=== PATIENT | male | born 1965 | race Caucasian/White ===

== ENCOUNTER 2017-01-04 11:16 | Emergency (ER) | payer OTHER ==
--- NOTE | 2017-01-04 11:26 | ER Document Report ---
ED Medical Screen (RME) - General Stated Complaint: RIGHT RIB INJURY Mode of Arrival: Ambulatory Information source: Patient Notes: Patient presents with right-sided rib pain. Reports he fell off ladder and landed on the ribs 2 days ago. No shortness of breath. I have greeted and performed a rapid initial assessment of this patient. A comprehensive ED assessment and evaluation of the patient, analysis of test results and completion of the medical decision making process will be conducted by additional ED providers. TRAVEL OUTSIDE OF THE [place] IN LAST 30 DAYS: No - Related Data Allergies/Adverse Reactions: levofloxacin [From Levaquin] Allergy (Verified 05/20/16 15:35) Past Medical History - Past Medical History Cardiac Medical History: Reports: Hx Hypertension Pulmonary Medical History: Reports: Hx Bronchitis, Hx Pneumonia Denies: Hx Tuberculosis GI Medical History: Reports: Hx Hepatitis - Hepatitis C Psychiatric Medical History: Denies: Hx Depression Infectious Medical History: Reports: Hx Hepatitis - Hepatitis C Past Surgical History: Reports: Hx Orthopedic Surgery - right 5th finger and left thumb - Immunizations Immunizations up to date: Yes Hx Diphtheria, Pertussis, Tetanus Vaccination: Yes Physical Exam - Vital signs Vitals: Temp Pulse Resp BP Pulse Ox 98.0 F 92 16 135/92 H 95 01/04/17 11:01/04/17 11:23 01/04/17 11:01/04/17 11:01/04/17 11:23 Course - Vital Signs Vital signs: Temp Pulse Resp BP Pulse Ox 98.0 F 92 16 135/92 H 95 01/04/17 11:23 01/04/17 11:23 01/04/17 11:23 01/04/17 11:23 01/04/17 11:23
[2017-01-04] MEDS ORDERED: OXYCODONE-ACETAMINOPHEN 5-325 MG TABLET PO ONE (11:50)
[2017-01-04] MEDS ORDERED: PROMETHAZINE HCL 25 MG TABLET PO ONE (11:51)
--- NOTE | 2017-01-04 12:06 | ER Document Report ---
ED General - General Chief Complaint: Rib Pain Stated Complaint: RIGHT RIB INJURY Mode of Arrival: Ambulatory Notes: Patient fell from a ladder with his right anterior chest/ribs hitting a metal post . He says that it's very painful for him to touch, take a deep breath, and especially cough. Does not feel short of breath, just pain with breathing. No vomiting and no diarrhea. No fevers. Denies any other injuries. No abdominal pain. TRAVEL OUTSIDE OF THE [place] IN LAST 30 DAYS: No - Related Data Allergies/Adverse Reactions: levofloxacin [From Levaquin] Allergy (Verified 01/04/17 11:26) Past Medical History - General Information source: Patient - Social History Smoking Status: Current Every Day Smoker Cigarette use (# per day): Yes Chew tobacco use (# tins/day): Yes - 1/2ppd Frequency of alcohol use: Rare Drug Abuse: None Family History: Reviewed & Not Pertinent Patient has suicidal ideation: No Patient has homicidal ideation: No - Past Medical History Cardiac Medical History: Reports: Hx Hypertension Pulmonary Medical History: Reports: Hx Bronchitis, Hx Pneumonia Denies: Hx Tuberculosis GI Medical History: Reports: Hx Hepatitis - Hepatitis C Infectious Medical History: Reports: Hx Hepatitis - Hepatitis C Past Surgical History: Reports: Hx Orthopedic Surgery - right 5th finger and left thumb - Immunizations Immunizations up to date: Yes Hx Diphtheria, Pertussis, Tetanus Vaccination: Yes Review of Systems - Review of Systems Notes: REVIEW OF SYSTEMS: CONSTITUTIONAL : Denies fever. EENT: Denies eye, ear, nose or mouth or throat pain or other symptoms. CARDIOVASCULAR: Pain of the anterior right chest wall, primarily right beneath the right breast. RESPIRATORY: Has some chronic cough, but no significant chest congestion, or shortness of breath. GASTROINTESTINAL: Denies abdominal pain or nausea, vomiting, or diarrhea. GENITOURINARY: Denies difficulty or painful urinating, urinary frequency, blood in urine. MUSCULOSKELETAL: Denies back or neck pain. Denies joint pain or swelling. SKIN: Denies rash or skin lesions. NEUROLOGICAL: Denies LOC or altered mental status. Denies headache. Denies sensory loss or motor deficits. ALL OTHER SYSTEMS REVIEWED AND NEGATIVE. Physical Exam - Vital signs Vitals: Temp Pulse Resp BP Pulse Ox 98.0 F 92 16 135/92 H 95 01/04/17 11:23 01/04/17 11:23 01/04/17 11:23 01/04/17 11:23 01/04/17 11:23 Interpretation: Normal - Notes Notes: PHYSICAL EXAMINATION: GENERAL: Well-appearing, in no acute distress. HEAD: Atraumatic, normocephalic. NECK: Normal range of motion, supple. LUNGS: Breath sounds clear and equal bilaterally. Very tender to press the right ribs, especially just below the right nipple. HEART: Regular rate and rhythm without murmurs. ABDOMEN: Soft, nontender. No guarding or rebound. BACK: No tenderness throughout entire back. EXTREMITIES: Normal range of motion without pain. NEUROLOGICAL: Normal speech, normal gait. Normal sensory, motor, and reflex exams. Awake, alert, and oriented x3. SKIN: Warm, dry, no rashes. No contusions, ecchymosis, abrasions,. Course - Vital Signs Vital signs: Temp Pulse Resp BP Pulse Ox 98.0 F 92 16 135/92 H 95 01/04/17 11:23 01/04/17 11:23 01/04/17 11:23 01/04/17 11:23 01/04/17 11:23 - Diagnostic Test Radiology results interpreted by me: 01/04/17 12:08 X-ray of the right ribs is negative. X-ray of the chest shows no pneumothorax. Discharge - Discharge Clinical Impression: Contusion of ribs Qualifiers: Encounter type: initial encounter Laterality: right Qualified Code(s): S20.211A - Contusion of right front wall of thorax, initial encounter Condition: Stable Disposition: HOME, SELF-CARE Additional Instructions: Rib Contusion You have been diagnosed as having bruised ribs. It will usually take a few weeks for these injured ribs to heal. You should cough or take a deep breath at least every hour or two to prevent lung complications. You should not engage in any strenuous physical activity until released by your physician. The usual rule is "if it hurts, don' t do it." Return if you develop any of the following: (1) Fever or chills. (2) Persistent cough, coughing up blood, or shortness of breath. (3) Increasing pain. (4) Weakness, lightheadedness, or fainting. Stop Smoking You should stop smoking. The tar and chemicals in cigarette smoke are harmful. Smoking has been shown to cause: Emphysema and chronic bronchitis Lung cancer Cancer of the mouth, larynx, stomach, and pancreas Heart disease and stroke Stillbirths and miscarriage Premature aging In addition, smoking increases the chances of respiratory infections and ear infections in children of smokers, and increases the risk of cancer in persons exposed to second-hand smoke. Classes are available to help you stop smoking. If you are serious about wanting to quit, we can help arrange this therapy for you, or you can contact the local lung or cancer association. Oral Narcotic Medication You have been given a prescription for pain control. This medication is a narcotic. It's best taken with food, as nausea can result if taken on an empty stomach. Don't operate machinery or drive within six hours of taking this medication. Do not combine this medicine with alcohol, or with any medication which can cause sedation (such as cold tablets or sleeping pills) unless you get permission from the physician. Narcotics tend to cause constipation. If possible, drink plenty of fluids and eat a diet high in fiber and fruits. FOLLOW-UP CARE: If you have been referred to a physician for follow-up care, call the physician s office for an appointment as you were instructed or within the next two days. If you experience worsening or a significant change in your symptoms, notify the physician immediately or return to the Emergency Department at any time for re-evaluation. Prescriptions: Oxycodone HCl/Acetaminophen [Percocet 5-325 mg Tablet] 1 - 2 tab PO Q4H PRN #15 tablet PRN Reason: Forms: Smoking Cessation Education
[2017-01-04 12:31] VITALS: BP 158/102
== END 2017-01-04 12:27 | disposition home or self-care (01) ==
LOC: ER 11:16
DX: S20.211A Contusion of right front wall of thorax, initial encounter (principal); R07.81 Pleurodynia; F17.210 Nicotine dependence, cigarettes, uncomplicated; R05 Cough; X58.XXXA Exposure to other specified factors, initial encounter
CPT/HCPCS: 99283

== ENCOUNTER 2017-04-09 13:15 | Emergency (ER) | payer OTHER ==
[2017-04-09] MEDS ORDERED: OXYCODONE HCL IR 5 MG TABLET PO ONE (13:47)
--- NOTE | 2017-04-09 13:58 | ER Document Report ---
ED General - General Chief Complaint: Rib Pain Stated Complaint: RIB PAIN Time Seen by Provider: 04/09/17 13:37 Mode of Arrival: Ambulatory Information source: Patient Notes: 52-year-old presents to ED for rib pain on the left side is the worst but it is on both sides. States he was violently vomiting all day yesterday felt a pop on the left chest had pain ever since then. Has history of high blood pressure but his blood pressure is 167/96 on the right with. machine and 160/110 on the left with a manual blood pressure. TRAVEL OUTSIDE OF THE [place] IN LAST 30 DAYS: No - HPI Onset: Yesterday Onset/Duration: Persistent Quality of pain: Sharp Severity: Severe Pain Level: 5 Associated symptoms: Other - Breathing or cough hurts to move increased pain with palpation Exacerbated by: Movement, Coughing, Deep breathing, Other - Palpation Relieved by: Denies Similar symptoms previously: Yes Recently seen / treated by doctor: No - Related Data Allergies/Adverse Reactions: levofloxacin [From Levaquin] Allergy (Verified 01/04/17 11:26) Past Medical History - General Information source: Patient - Social History Smoking Status: Current Every Day Smoker Cigarette use (# per day): Yes - Pack per day Chew tobacco use (# tins/day): No Smoking Education Provided: Yes - less than 2 minute Frequency of alcohol use: Heavy - Dating Drug Abuse: None Occupation: Obstruction Lives with: Parents - Mother Family History: Arthritis, COPD, Hypertension, Other - CHF Patient has suicidal ideation: No Patient has homicidal ideation: No - Past Medical History Cardiac Medical History: Reports: Hx Hypercholesterolemia Pulmonary Medical History: Reports: Hx Bronchitis, Hx Pneumonia EENT Medical History: Reports: None Neurological Medical History: Reports: None Endocrine Medical History: Reports: None Renal/ Medical History: Reports: None Malignancy Medical History: Reports Hx Skin Cancer - Basal cell carcinoma GI Medical History: Reports: Hx Hepatitis - Hepatitis C Musculoskeltal Medical History: Reports Hx Musculoskeletal Trauma - Fifth finger and ribs Skin Medical History: Reports None Psychiatric Medical History: Reports: None Traumatic Medical History: Reports: None Infectious Medical History: Reports: Hx Hepatitis - Hepatitis C Past Surgical History: Reports: Hx Orthopedic Surgery - right 5th finger and left thumb - Immunizations Immunizations up to date: Yes Hx Diphtheria, Pertussis, Tetanus Vaccination: Yes Review of Systems - Review of Systems Constitutional: No symptoms reported EENT: No symptoms reported Cardiovascular: Chest pain - Chest wall pain to the left and right states she has history of right rib pain in the ribs on the left side feel the same after vomiting yesterday and feeling a sharp pop Respiratory: No symptoms reported Gastrointestinal: No symptoms reported Genitourinary: No symptoms reported Male Genitourinary: No symptoms reported Musculoskeletal: No symptoms reported Skin: No symptoms reported Hematologic/Lymphatic: No symptoms reported Neurological/Psychological: No symptoms reported -: Yes All other systems reviewed and negative Physical Exam - Vital signs Vitals: Temp Pulse Resp BP Pulse Ox 98.1 F 84 18 158/102 H 96 04/09/17 13:31 04/09/17 13:31 04/09/17 13:31 04/09/17 13:31 04/09/17 13:31 Interpretation: Normal - General General appearance: Appears well, Alert - HEENT Head: Normocephalic, Atraumatic Eyes: Normal Pupils: PERRL - Respiratory Respiratory status: No respiratory distress Chest status: Tender - Chest wall pain worse with palpation. Breath sounds: Normal Chest palpation: Normal - Cardiovascular Rhythm: Regular Heart sounds: Normal auscultation Murmur: No - Abdominal Inspection: Normal Distension: No distension Bowel sounds: Normal Tenderness: Nontender Organomegaly: No organomegaly - Back Back: Normal, Nontender - Extremities General upper extremity: Normal inspection, Nontender, Normal color, Normal ROM , Normal temperature General lower extremity: Normal inspection, Nontender, Normal color, Normal ROM , Normal temperature, Normal weight bearing. No: Olive's sign - Neurological Neuro grossly intact: Yes Cognition: Normal Orientation: AAOx4 Baudette Coma Scale Eye Opening: Spontaneous [place] Coma Scale Verbal: Oriented B[place] Coma Scale Motor: Obeys Commands Lila Coma Scale Total: 15 Speech: Normal Motor strength normal: LUE, RUE, LLE, RLE Sensory: Normal - Psychological Associated symptoms: Normal affect, Normal mood - Skin Skin Temperature: Warm Skin Moisture: Dry Skin Color: Normal Course - Re-evaluation Re-evalutation: 04/09/17 22:17 Discussed patient's x-rays and labs with patient and with Dr. Dillon. Patient will be discharged home with prescription for oxycodone. Patient will follow up with Debra to me in the clinic was elevated liver enzymes elevated lipase and fractured ribs. Discharge planning discussed with patient follow-up and was able to get their appointment please forward to April 29 instead of May 29. - Vital Signs Vital signs: Temp Pulse Resp BP Pulse Ox 98.5 F 76 18 153/102 H 96 04/09/17 15:32 04/09/17 15:32 04/09/17 15:32 04/09/17 15:32 04/09/17 15:32 - Laboratory Result Diagrams: 04/09/17 14:00 04/09/17 14:00 Laboratory results interpreted by me: 04/09/17 04/09/17 14:00 14:00 WBC 11.6 H Plt Count 142 L Monocytes % 13.2 H Absolute Monocytes 1.5 H Total Bilirubin 2.4 H Direct Bilirubin 0.7 H AST 312 H ALT 188 H Alkaline Phosphatase 212 H Total Protein 9.2 H Lipase 349.6 H - Diagnostic Test Radiology reviewed: Image reviewed, Reports reviewed Discharge - Discharge Clinical Impression: Fracture of rib of left side Qualifiers: Encounter type: initial encounter Rib fracture type: multiple ribs Fracture type: closed Qualified Code(s): S22.42XA - Multiple fractures of ribs, left side , initial encounter for closed fracture Condition: Good Disposition: HOME, SELF-CARE Additional Instructions: Rib Injuries and Fractures You have been diagnosed as having either bruised or broken ribs. These two injuries are treated in the same way. It will usually take four to six weeks for these injured ribs to heal. Sometimes, rib belts or anesthetic injections of the chest wall help reduce the pain. If you are using a rib belt, you should cough or take a deep breath at least every hour or two to prevent lung complications. You should not engage in any strenuous physical activity until released by your physician. The usual rule is "if it hurts, don't do it." Rib fractures can lead to serious lung complications including lung collapse, hemorrhage, and pneumonia. You should call the physician or return at once if any of the following occur: (1) Fever or chills. (2) Persistent cough, coughing up blood, or shortness of breath. (3) Increasing pain. (4) Weakness, lightheadedness, or fainting. Be sure to take deep breaths and cough at least once an hour to prevent pneumonia. Also have elevated liver enzymes and elevated lipase that needs to be followed up with your primary doctor. I spoke with the discharge plan to see if she can get to the [facility] and replaced by [facility] before May she will come in for BP before discharge. ICE PACKS: Apply ice packs frequently against the painful area. Many different schedules are recommended, such as "20 minutes on, 20 minutes off" or "one hour ice, two hours rest." If you need to work, you may need to go longer between ice treatments. You should plan to have the area ice packed AT LEAST one fourth of the time. The ice should be applied over the wrap, tape, or splint, or over a layer of cloth -- not directly against the skin. Some ice bags have a built-in cloth and can be put directly on the skin. ORAL NARCOTIC MEDICATION: You have been given a prescription for pain control. This medication is a narcotic. It's best taken with food, as nausea can result if taken on an empty stomach. Don't operate machinery or drive within six hours of taking this medication. Do not combine this medicine with alcohol, or with any medication which can cause sedation (such as cold tablets or sleeping pills) unless you get permission from the physician. Narcotics tend to cause constipation. If possible, drink plenty of fluids and eat a diet high in fiber and fruits. FOLLOW-UP CARE: If you have been referred to a physician for follow-up care, call the physician s office for an appointment as you were instructed or within the next two days. If you experience worsening or a significant change in your symptoms, notify the physician immediately or return to the Emergency Department at any time for re-evaluation. Prescriptions: Oxycodone HCl [Oxy-Ir 5 mg Tablet] 5 mg PO Q8HP PRN #14 tab PRN Reason: Forms: Elevated Blood Pressure, Smoking Cessation Education, Return to Work Referrals: [facility] [Provider Group] - Follow up as needed
[2017-04-09 14:14] LABS: ABSOLUTE BASOPHILS # (AUTO) 0.1 10^3/uL (0.0-0.2); ABSOLUTE LYMPHOCYTES (AUTO) 2.6 10^3/uL (0.5-4.7); ABSOLUTE MONOCYTES (AUTO) 1.5 10^3/uL (0.1-1.4); ABSOLUTE NEUT (AUTO) 7.4 10^3/uL (1.7-8.2); BASOPHILS % (AUTO) 0.5 % (0-2); EOSINOPHILS % (AUTO) 0.3 % (0-6); HEMATOCRIT 42.2 % (37.9-51.0); HEMOGLOBIN 14.7 g/dL (13.5-17.0); HGB HCT DIFFERENCE 1.9; MEAN CORPUSCULAR HGB CONC 34.7 g/dL (32.0-36.0); MEAN CORPUSCULAR VOLUME 95 fl (80-97); MONOCYTES % (AUTO) 13.2 % (3-13); RED BLOOD COUNT 4.45 10^6/uL (4.35-5.55); WHITE BLOOD COUNT 11.6 10^3/uL (4.0-10.5)
--- NOTE | 2017-04-09 14:23 | RADIOLOGY REPORT (SQ) ---
EXAM DESCRIPTION: RIBS BILATERAL W/PA CXR COMPLETED DATE/TIME: 04/09/2017 2:12 pm REASON FOR STUDY: rib pain after violently vomiting COMPARISON: 01/04/2017 and 02/01/2013. TECHNIQUE: Frontal view of the chest and additional views of the right and left ribs acquired. NUMBER OF VIEWS: Four view. LIMITATIONS: None. FINDINGS: FRONTAL CXR: No pneumothorax. No pleural effusion. No atelectasis or infiltrates. RIBS: Probable healing nondisplaced fractures of the anterior left 7th and 8th ribs. No other acute fractures visualized on either side. OTHER: No other significant finding. IMPRESSION: PROBABLE HEALING NONDISPLACED FRACTURES OF THE ANTERIOR LEFT 7TH AND 8TH RIBS. COMMENT: SITE OF TRAUMA/COMPLAINT MARKED/STAMP COMPLETED: YES. TECHNICAL DOCUMENTATION: JOB ID: [id number] [employer]- All Rights Reserved
[2017-04-09 14:29] LABS: ALANINE AMINOTRANSFERASE 188 U/L (21-72); ALBUMIN 4.4 g/dL (3.5-5.0); ALKALINE PHOSPHATASE 212 U/L (38-126); ANION GAP 13 (5-19); ASPARTATE AMINO TRANSFERASE 312 U/L (17-59); BILIRUBIN,DIRECT 0.7 mg/dL (0.0-0.4); BILIRUBIN,TOTAL 2.4 mg/dL (0.2-1.3); BLOOD UREA NITROGEN 8 mg/dL (7-20); CARBON DIOXIDE 26 mmol/L (22-30); CHLORIDE 98 mmol/L (98-107); CREATINE KINASE 167 U/L (55-170); CREATININE RESULT 0.52 mg/dL (0.52-1.25); GLUCOSE 90 mg/dL (75-110); LIPASE 349.6 U/L (23-300); POTASSIUM 3.8 mmol/L (3.6-5.0); SODIUM 137.3 mmol/L (137-145); TOTAL PROTEIN 9.2 g/dL (6.3-8.2)
[2017-04-09 14:39] LABS: CREATINE KINASE MB 1.33 ng/mL (<4.55)
[2017-04-09 14:42] LABS: TROPONIN I < 0.012 ng/mL
[2017-04-09 15:36] VITALS: BP 153/102
--- NOTE | 2017-04-10 09:58 | EKG REPORT ---
SEVERITY:- NORMAL ECG - SINUS RHYTHM : Confirmed by: Mk Nieves 10-Apr-2017 09:57:40
== END 2017-04-09 15:36 | disposition home or self-care (01) ==
LOC: ER 13:15
DX: S22.42XA Multiple fractures of ribs, left side, initial encounter for closed fracture (principal); X58.XXXA Exposure to other specified factors, initial encounter; R74.8 Abnormal levels of other serum enzymes; F17.210 Nicotine dependence, cigarettes, uncomplicated; Z71.6 Tobacco abuse counseling; Z87.01 Personal history of pneumonia (recurrent); Z85.828 Personal history of other malignant neoplasm of skin; Z88.1 Allergy status to other antibiotic agents
CPT/HCPCS: 36415; 71111; 80053; 82550; 82553; 83690; 84484; 85025; 93005; 93010; 99284

== ENCOUNTER 2017-08-28 10:07 | Emergency (ER) | payer OTHER ==
--- NOTE | 2017-08-28 10:30 | ER Document Report ---
HPI - HPI Patient complains to provider of: left shoulder pain Pain Level: 5 Context: Patient is a 52-year-old male presents emergency department complaining of acute on chronic left shoulder pain. Patient states he has been having left shoulder pain for a couple months and last night was lifting some logs and woke up this morning with severe left shoulder pain and difficulty moving his left shoulder. Denies any fall or trauma. Past medical history significant for hepatitis C Past Medical History - Social History Smoking Status: Current Every Day Smoker Family History: Arthritis, COPD, Hypertension, Other - CHF - Past Medical History Cardiac Medical History: Reports: Hx Hypercholesterolemia, Hx Hypertension Pulmonary Medical History: Reports: Hx Bronchitis, Hx Pneumonia Denies: Hx Tuberculosis Renal/ Medical History: Denies: Hx Peritoneal Dialysis Malignancy Medical History: Reports Hx Skin Cancer - Basal cell carcinoma GI Medical History: Reports: Hx Hepatitis - Hepatitis C Musculoskeltal Medical History: Reports Hx Musculoskeletal Trauma - Fifth finger and ribs Psychiatric Medical History: Denies: Hx Depression Infectious Medical History: Reports: Hx Hepatitis - Hepatitis C Past Surgical History: Reports: Hx Orthopedic Surgery - right 5th finger and left thumb - Immunizations Immunizations up to date: Yes Hx Diphtheria, Pertussis, Tetanus Vaccination: Yes Vertical Provider Document - CONSTITUTIONAL Agree With Documented VS: Yes Exam Limitations: No Limitations General Appearance: WD/WN, No Apparent Distress - INFECTION CONTROL TRAVEL OUTSIDE OF THE [place] IN LAST 30 DAYS: No - RESPIRATORY O2 Sat by Pulse Oximetry: 96 - CARDIOVASCULAR Pulses: Normal: Radial - Capillary refill less than 2 seconds - MUSCULOSKELETAL/EXTREMETIES Musculoskeletal/Extremeties: MAEW, FROM, Tender - Left AC joint, No Edema. negative: Eccymosis - NEURO Level of Consciousness: Awake, Alert, Appropriate Motor/Sensory: No Motor Deficit, No Sensory Deficit - DERM Integumentary: Warm, Dry, No Rash Course - Re-evaluation Re-evalutation: 08/28/17 11:38 Patient is a 52-year-old male is hemodynamically stable, no acute distress afebrile. No evidence of a septic joint, gout flare, dislocation, or fracture on exam and imaging. Vitals wnl. At this time, I do not see an indication for labs or further imaging. Will discharge with conservative measures, return precautions, and follow-up recommendations. - Vital Signs Vital signs: Temp Pulse Resp BP Pulse Ox 98.6 F 95 18 129/94 H 96 08/28/17 10:11 08/28/17 10:11 08/28/17 10:11 08/28/17 10:25 08/28/17 10:11 - Diagnostic Test Radiology reviewed: Image reviewed, Reports reviewed Discharge - Discharge Clinical Impression: {Shoulder injury} Shoulder injury Qualifiers: Encounter type: initial encounter Laterality: left Qualified Code(s): S49.92XA - Unspecified injury of left shoulder and upper arm, initial encounter Condition: Good Disposition: HOME, SELF-CARE Instructions: Exercise Program for the Shoulder (OM), Shoulder Injury (OM), Sling to be Used ([facility]) Prescriptions: Naproxen 500 mg PO BID #20 tablet Referrals: [facility] [NO LOCAL MD] - Follow up in 1 month
--- NOTE | 2017-08-28 11:12 | RADIOLOGY REPORT (SQ) ---
EXAM DESCRIPTION: SHOULDER LEFT 2 OR MORE VIEWS COMPLETED DATE/TIME: 08/28/2017 11:01 am REASON FOR STUDY: pain COMPARISON: None. NUMBER OF VIEWS: Three views. TECHNIQUE: Internal rotation, external rotation, and Y view images acquired of the left shoulder. LIMITATIONS: None. FINDINGS: MINERALIZATION: Normal. BONES: No acute fracture or dislocation. No worrisome bone lesions. JOINTS: No dislocation. VISUALIZED LUNGS AND RIBS: No pneumothorax. No rib fracture. SOFT TISSUES: No radiopaque foreign body. OTHER: No other significant finding. IMPRESSION: NEGATIVE STUDY OF THE LEFT SHOULDER. NO RADIOGRAPHIC EVIDENCE OF ACUTE INJURY. TECHNICAL DOCUMENTATION: JOB ID: [id number] [employer]- All Rights Reserved
[2017-08-28] MEDS ORDERED: OXYCODONE HCL IR 5 MG TABLET PO ONE (11:37)
[2017-08-28] MEDS ORDERED: LIDOCAINE 5% (700 MG) TRANSDERMAL ADH..PATCH TP ONE (12:21)
[2017-08-28 12:48] VITALS: BP 135/92
== END 2017-08-28 12:41 | disposition home or self-care (01) ==
LOC: ER 10:07
DX: S49.92XA Unspecified injury of left shoulder and upper arm, initial encounter (principal); X50.9XXA Other and unspecified overexertion or strenuous movements or postures, initial encounter; E78.00 Pure hypercholesterolemia, unspecified; I10 Essential (primary) hypertension; Z86.19 Personal history of other infectious and parasitic diseases
CPT/HCPCS: 99284

== ENCOUNTER 2018-05-19 01:43 | Emergency (ER) | payer OTHER ==
[2018-05-19] MEDS ORDERED: ACETAMINOPHEN 325 MG TABLET PO ONE (04:02)
[2018-05-19] MEDS ORDERED: LIDOCAINE 1% INJ-PF (10 MG/ML) 30 ML SDV INJ ONE (04:02)
[2018-05-19] MEDS ORDERED: DIPH/PERTUSS(ACELL)/TETANUS VAC/PF 0.5 ML SYR (>=10YO) IM ONE (04:03)
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
[2018-05-19] MEDS ORDERED: KETOROLAC TROMETHAMINE INJ/PF 30 MG/1 ML SDV IV ONE (06:35)
[2018-05-19 07:53] VITALS: BP 140/95
== END 2018-05-19 06:58 | disposition home or self-care (01) ==
LOC: ER 01:43
DX: S01.01XA Laceration without foreign body of scalp, initial encounter (principal); R51 Headache; Y00.XXXA Assault by blunt object, initial encounter; Y92.009 Unspecified place in unspecified non-institutional (private) residence as the place of occurrence of the external cause; I10 Essential (primary) hypertension; Z88.1 Allergy status to other antibiotic agents; Z85.828 Personal history of other malignant neoplasm of skin
CPT/HCPCS: 99284; 90471; 96374; 70450; 72125; 90715; 12001; J3490; J1885

== ENCOUNTER 2019-05-24 15:44 | Inpatient (IN) | payer OTHER ==
[2019-05-24] MEDS ORDERED: CLINDAMYCIN 600 MG/D5W RTU 600 MG/50 ML RTUPB IV ONE (18:29)
--- NOTE | 2019-05-24 18:32 | ER Document Report ---
ED Medical Screen (RME) - General Chief Complaint: Hand Swelling Stated Complaint: RIGHT HAND PAIN, SWELLING Time Seen by Provider: 05/24/19 18:06 Notes: Patient is a 54-year-old male presents to the emergency department with redness and swelling noted to his right upper extremity. Patient states similar episode of erythema noted to her left upper extremity a few months ago. States he was admitted for 4 days for IV antibiotics. Patient states the redness and swelling is "just as bad as last time." Patient's denying any injury but states he has been exposed to bedbugs and scabies recently. GENERAL: Alert, interacts well. No acute distress. EXTREMITIES: Moves all 4 extremities spontaneously. normal radial and dorsalis pedis pulses bilaterally. Erythema and swelling noted dorsal aspect of left hand up into the left forearm. Decreased range of motion of left wrist noted. I have greeted and performed a rapid initial assessment of this patient. A comprehensive ED assessment and evaluation of the patient, analysis of test resu lts and completion of the medical decision making process will be conducted by additional ED providers. I have specifically instructed the patient or family members with the patient to immediately return to any nursing staff should anything change in the patient's condition or with their chief complaint. This medical record was dictated with voice recognizing software. There may be grammatical, syntax errors that are unintended. TRAVEL OUTSIDE OF THE [place] IN LAST 30 DAYS: No - Related Data Allergies/Adverse Reactions: levofloxacin [From Levaquin] Allergy (Verified 05/24/19 15:47) Past Medical History - Past Medical History Cardiac Medical History: Reports: Hx Hypercholesterolemia, Hx Hypertension Pulmonary Medical History: Reports: Hx Bronchitis, Hx Pneumonia Denies: Hx Tuberculosis Renal/ Medical History: Denies: Hx Peritoneal Dialysis Malignancy Medical History: Reports Hx Skin Cancer - Basal cell carcinoma GI Medical History: Reports: Hx Hepatitis - Hepatitis C Musculoskeltal Medical History: Reports Hx Musculoskeletal Trauma - Fifth finger and ribs Psychiatric Medical History: Denies: Hx Depression Infectious Medical History: Reports: Hx Hepatitis - Hepatitis C Past Surgical History: Reports: Hx Orthopedic Surgery - right 5th finger and left thumb - Immunizations Immunizations up to date: Yes Hx Diphtheria, Pertussis, Tetanus Vaccination: Yes Physical Exam - Vital signs Vitals: Temp Pulse Resp BP Pulse Ox 97.7 F 94 16 131/82 H 95 05/24/19 17:01 05/24/19 17:01 05/24/19 17:01 05/24/19 17:01 05/24/19 17:01 Course - Vital Signs Vital signs: Temp Pulse Resp BP Pulse Ox 97.7 F 94 16 131/82 H 95 05/24/19 17:01 05/24/19 17:01 05/24/19 17:01 05/24/19 17:01 05/24/19 17:01
[2019-05-24] MEDS ORDERED: OXYCODONE-ACETAMINOPHEN 5-325 MG TABLET PO ONE (19:02)
[2019-05-24] MEDS ORDERED: NORMAL SALINE 1000 ML 1,000 ML IV ONE (19:10)
--- NOTE | 2019-05-24 19:12 | ER Document Report ---
ED Extremity Problem, Upper - General Chief Complaint: Hand Swelling Stated Complaint: RIGHT HAND PAIN, SWELLING Time Seen by Provider: 05/24/19 18:06 Mode of Arrival: Ambulatory Information source: Patient Notes: 54-year-old male presents to ED for complaint of redness swelling and pain to e right hand wrist and forearm. He states he had a similar episode in February and was admitted and placed on antibiotics. He states he has not had any cuts or anything to this hand it just started coming very painful. He states is just as bad as last time. He states he has not injured his arm. He states he has no history of gout. He states he has been exposed to bedbugs and scabies recently but he has not scratched any bug bites TRAVEL OUTSIDE OF THE [place] IN LAST 30 DAYS: No - HPI Patient complains to provider of: Pain, Swelling, Right, Forearm, Hand, Wrist Onset: Yesterday Recent injury: No Where: Home Quality of pain: Sharp, Throbbing Severity of pain: Severe Pain Level: 5 Associated symptoms: Other Exacerbated by: Movement Relieved by: Nothing Similar symptoms previously: Yes Recently seen / treated by doctor: No - Related Data Allergies/Adverse Reactions: levofloxacin [From Levaquin] Allergy (Verified 05/24/19 15:47) Past Medical History - General Information source: Patient - Social History Smoking Status: Current Every Day Smoker Cigarette use (# per day): Yes - Pack per day Chew tobacco use (# tins/day): No Smoking Education Provided: Yes - Woman Frequency of alcohol use: Heavy - 5-6 beers either every day or every other day Drug Abuse: None Occupation: Instruction Lives with: Alone Family History: Arthritis, COPD, Hypertension, Other - CHF - Past Medical History Cardiac Medical History: Reports: Hx Hypercholesterolemia, Hx Hypertension Pulmonary Medical History: Reports: Hx Bronchitis, Hx Pneumonia EENT Medical History: Reports: None Neurological Medical History: Reports: None Endocrine Medical History: Reports: None Renal/ Medical History: Reports: None Malignancy Medical History: Reports Hx Skin Cancer - Basal cell carcinoma GI Medical History: Reports: Hx Hepatitis - Hepatitis C Musculoskeletal Medical History: Reports Hx Musculoskeletal Trauma - Fifth finger and ribs Skin Medical History: Reports Hx Cellulitis Psychiatric Medical History: Reports: None Traumatic Medical History: Reports: None Infectious Medical History: Reports: Hx Hepatitis - Hepatitis C Past Surgical History: Reports: Hx Orthopedic Surgery - right 5th finger and left thumb - Immunizations Immunizations up to date: Yes Hx Diphtheria, Pertussis, Tetanus Vaccination: Yes Review of Systems - Review of Systems Constitutional: No symptoms reported EENT: No symptoms reported Cardiovascular: No symptoms reported Respiratory: No symptoms reported Gastrointestinal: No symptoms reported Genitourinary: No symptoms reported Male Genitourinary: No symptoms reported Musculoskeletal: No symptoms reported Skin: No symptoms reported Hematologic/Lymphatic: No symptoms reported Neurological/Psychological: No symptoms reported -: Yes All other systems reviewed and negative Physical Exam - Vital signs Vitals: Temp Pulse Resp BP Pulse Ox 97.7 F 94 16 131/82 H 95 05/24/19 17:01 05/24/19 17:01 05/24/19 17:01 05/24/19 17:01 05/24/19 17:01 Interpretation: Normal - General General appearance: Appears well, Alert - HEENT Head: Normocephalic, Atraumatic Eyes: Normal Pupils: PERRL - Respiratory Respiratory status: No respiratory distress Chest status: Nontender Breath sounds: Normal Chest palpation: Normal - Cardiovascular Rhythm: Regular Heart sounds: Normal auscultation Murmur: No - Abdominal Inspection: Normal Distension: No distension Bowel sounds: Normal Tenderness: Nontender Organomegaly: No organomegaly - Back Back: Normal, Nontender - Extremities General upper extremity: Normal temperature General lower extremity: Normal inspection, Nontender, Normal color, Normal ROM, Normal temperature, Normal weight bearing. No: Olive's sign Forearm: Tender, Other - Erythema swelling Wrist: Tender, Limited ROM - Pain swelling, Other Hand: Tender, No evidence of human bite, No evidence of FB, Swelling, Other - Erythema - Neurological Neuro grossly intact: Yes Cognition: Normal Orientation: AAOx4 Lila Coma Scale Eye Opening: Spontaneous Lila Coma Scale Verbal: Oriented Bosworth Coma Scale Motor: Obeys Commands Bosworth Coma Scale Total: 15 Speech: Normal Motor strength normal: LUE, RUE, LLE, RLE Sensory: Normal - Psychological Associated symptoms: Normal affect, Normal mood - Skin Skin Temperature: Warm Skin Moisture: Dry Skin Color: Normal Course - Re-evaluation Re-evalutation: 05/24/19 21:[address] Tori Norman concerning the cellulitis pain swelling to the right hand wrist and forearm. She recommended calling orthopedics. I consulted Dr. Bravo who stated if there was no obvious injuries no obvious tendon damage and no abscesses that this was a cellulitis and needed to go to the hospitalist. I consulted Dr. Leo the hospitalist and he stated he would come and see the patient and decided whether he wants to send him home or to the admitting. They did he would come to the emergency room and see the patient. 05/24/19 22:16 Orders were placed for observation admission at [address] Leo - Vital Signs Vital signs: Temp Pulse Resp BP Pulse Ox 98.2 F 102 H 20 146/94 H 94 05/24/19 21:42 05/24/19 21:42 05/24/19 21:42 05/24/19 21:42 05/24/19 21:42 - Laboratory Result Diagrams: 05/24/19 19:35 05/24/19 19:35 Laboratory results interpreted by me: 05/24/19 05/24/19 19:35 19:35 WBC 13.0 H RDW 14.1 H Absolute Neutrophils 8.5 H Absolute Monocytes 1.6 H ESR 84 H Sodium 135.6 L Potassium 3.3 L Chloride 96 L AST 78 H Alkaline Phosphatase 170 H C-Reactive Protein 52.0 H Total Protein 8.4 H - Diagnostic Test Radiology reviewed: Image reviewed, Reports reviewed - Consults Ahmet Time consulted: 21:18 Reason for consultation: 05/24/19 21:18 Cellulitis right hand wrist and forearm Consulted provider: will come to ER Discharge - Discharge Clinical Impression: cellulitis right hand wrist and forearm Disposition: ADMITTED OBSERVATION Admitting Provider: Ahmet (Hospitalist) Unit Admitted: Medical Floor
[2019-05-24] MEDS ORDERED: ONDANSETRON HCL INJ/PF 4 MG/2 ML SDV IV ONE ×2 (19:13→21:36)
[2019-05-24] MEDS ORDERED: MORPHINE SULFATE 10 MG/ML INJ IV ONE ×2 (19:13→21:36)
--- NOTE | 2019-05-24 19:30 | RADIOLOGY REPORT (SQ) ---
EXAM DESCRIPTION: FOREARM RIGHT COMPLETED DATE/TIME: 05/24/2019 7:12 pm REASON FOR STUDY: Erythema swelling COMPARISON: None. NUMBER OF VIEWS: Two views. TECHNIQUE: Two radiographic images acquired of the right forearm, including elbow and wrist in at le ast one projection. LIMITATIONS: None. FINDINGS: MINERALIZATION: Normal. BONES: No acute fracture. No worrisome bone lesions. SOFT TISSUES: Diffuse soft tissue swelling. No radiopaque foreign body. OTHER: No other significant finding. IMPRESSION: No fracture or radiopaque foreign body. TECHNICAL DOCUMENTATION: JOB ID: [id number] [place]-72 2010 [email or web address]- All Rights Reserved Reading location - IP/workstation name: [email or web address]
--- NOTE | 2019-05-24 19:33 | RADIOLOGY REPORT (SQ) ---
EXAM DESCRIPTION: HAND RIGHT 3 VIEWS COMPLETED DATE/TIME: 05/24/2019 7:12 pm REASON FOR STUDY: Erythema swelling COMPARISON: None. EXAM PARAMETERS: NUMBER OF VIEWS: Three views. TECHNIQUE: AP, lateral and oblique radiographic images acquired of the right hand. LIMITATIONS: None. FINDINGS: MINERALIZATION: Normal. BONES: No acute fracture or dislocation. 5th DIP flexion deformity, chronic appearing. JOINTS: No effusion. SOFT TISSUES: Diffuse soft tissue swelling. No radiopaque foreign body. OTHER: No other significant finding. IMPRESSION: No acute fracture or dislocation. 5th DIP flexion deformity, chronic appearing. TECHNICAL DOCUMENTATION: JOB ID: [id number] [place]-72 2010 [email or web address]- All Rights Reserved Reading location - IP/workstation name: [email or web address]
[2019-05-24 20:08] LABS: ABSOLUTE BASOPHILS # (AUTO) 0.1 10^3/uL (0.0-0.2); ABSOLUTE LYMPHOCYTES (AUTO) 2.8 10^3/uL (0.5-4.7); ABSOLUTE MONOCYTES (AUTO) 1.6 10^3/uL (0.1-1.4); ABSOLUTE NEUT (AUTO) 8.5 10^3/uL (1.7-8.2); BASOPHILS % (AUTO) 0.5 % (0-2); EOSINOPHILS % (AUTO) 0.3 % (0-6); HEMATOCRIT 40.7 % (37.9-51.0); HEMOGLOBIN 13.8 g/dL (13.5-17.0); LYMPHOCYTES % (AUTO) 21.4 % (13-45); MEAN CORPUSCULAR HEMOGLOBIN 31.4 pg (27.0-33.4); MEAN CORPUSCULAR VOLUME 92 fl (80-97); MONOCYTES % (AUTO) 12.4 % (3-13); PLATELET COUNT 194 10^3/uL (150-450); RED BLOOD COUNT 4.41 10^6/uL (4.35-5.55); RED CELL DISTRIBUTION WIDTH 14.1 % (11.5-14.0); SEGMENTED NEUTROPHILS % (AUTO) 65.4 % (42-78); TOTAL CELLS COUNTED % (AUTO) 100 %
[2019-05-24 20:29] LABS: ALANINE AMINOTRANSFERASE 41 U/L (21-72); ALBUMIN 3.9 g/dL (3.5-5.0); ALKALINE PHOSPHATASE 170 U/L (38-126); ANION GAP 12 (5-19); ASPARTATE AMINO TRANSFERASE 78 U/L (17-59); BILIRUBIN,DIRECT 0.3 mg/dL (0.0-0.4); BILIRUBIN,TOTAL 1.1 mg/dL (0.2-1.3); BLOOD UREA NITROGEN 7 mg/dL (7-20); CALCIUM 9.6 mg/dL (8.4-10.2); CARBON DIOXIDE 28 mmol/L (22-30); CHLORIDE 96 mmol/L (98-107); GLUCOSE 92 mg/dL (75-110); POTASSIUM 3.3 mmol/L (3.6-5.0); SODIUM 135.6 mmol/L (137-145); TOTAL PROTEIN 8.4 g/dL (6.3-8.2)
[2019-05-24 20:43] LABS: ERYTHROCYTE SEDIMENTATION RATE 84 mm/hr (0-20)
[2019-05-24] MEDS ORDERED: MAGNESIUM HYDROXIDE SUSP 30 ML UDCUP PO PRN (21:57)
[2019-05-24] MEDS ORDERED: ONDANSETRON HCL INJ/PF 4 MG/2 ML SDV IV PRN (21:57)
[2019-05-24] MEDS ORDERED: MAG HYDROX/AL HYDROX/SIMETH SUSP 30 ML UDCUP PO PRN (21:57)
[2019-05-24] MEDS ORDERED: LEVALBUTEROL HCL NEB 0.63 MG/3 ML AMPUL NEB PRN (22:03)
[2019-05-24] MEDS ORDERED: NICOTINE 21 MG/24 HR PATCH.TD24 TD PRN (22:03)
[2019-05-24] MEDS ORDERED: ACETAMINOPHEN 325 MG TABLET PO PRN (22:03)
[2019-05-24] MEDS ORDERED: MORPHINE SULFATE 10 MG/ML INJ IV PRN ×3 (22:03→22:25)
[2019-05-24] MEDS ORDERED: CHLORPROMAZINE HCL INJ 25 MG/1 ML AMPULE IV PRN (22:03)
[2019-05-24] MEDS ORDERED: METOPROLOL TARTRATE PF/INJ 5 MG/5 ML SDV IV PRN (22:03)
[2019-05-24] MEDS: MORPHINE SULFATE 10 MG/ML INJ IV PRN (23:40)
[2019-05-24] MEDS: HEPARIN SOD (PORCINE) 5,000 UNIT/ML 1 ML VIAL SUBCUT SCH (23:40)
[2019-05-24] MEDS: DIAZEPAM 5 MG TABLET PO SCH (23:41)
[2019-05-24] MEDS: CEPHALEXIN 500 MG CAPSULE PO SCH (23:41)
[2019-05-25] MEDS: MORPHINE SULFATE 10 MG/ML INJ IV PRN ×2 (02:32→06:08)
--- NOTE | 2019-05-25 04:21 | PDOC H&P ---
History of Present Illness Admission Date/PCP: 05/24/2019 21:26 No local PCP Patient complains of: Painful swelling of right hand and wrist History of Present Illness: JOSE MCNEAL is a 54 year old male who presents to the emergency room with a 3-day history of painful swelling in his right hand and wrist. He admits that over the last 3 days he has developed gradual swelling and increasing pain, with associated redness of the skin and warmth to touch in the right distal forearm, wrist and hand. The pain has become severe and he describes it as a constant sharp throbbing in his hand wrist and distal forearm radiating up his right forearm. The pain is made worse by any attempted use of the hand or wrist. He denies any recent injury to the area. He admits a prior similar episode involving his other hand a few months ago. He has not identified any additional aggravating or ameliorating factors for his painful swelling. Past Medical History Cardiac Medical History: Reports: Hyperlipidema, Hypertension Denies: Atrial Fibrillation, Congestive Heart Failure, Coronary Artery Disease, Myocardial Infarction Pulmonary Medical History: Reports: Bronchitis, Pneumonia Denies: Asthma, Chronic Obstructive Pulmonary Disease (COPD), Respiratory Failure, Tuberculosis EENT Medical History: Denies: Cataracts, Ears - Hearing aids Neurological Medical History: Denies: Hemorrhagic CVA, Ischemic CVA, Multiple Sclerosis, Seizures Endocrine Medical History: Denies: Diabetes Mellitus Type 1, Diabetes Mellitus Type 2, Hyperthyroidism, Hypothyroidism Renal/ Medical History: Denies: Chronic Kidney Disease, Nephrolithiasis Malignancy Medical History: Reports: Skin Cancer - Basal cell carcinoma GI Medical History: Reports: Hepatitis - Hepatitis C Denies: Cirrhosis, Crohn's Disease, Ulcerative Colitis Musculoskeltal Medical History: Reports: Arthritis Denies: Fibromyalgia, Gout Skin Medical History: Denies: Eczema, Psoriasis Psychiatric Medical History: Reports: Alcohol Dependency, Tobacco Dependency Denies: Substance Abuse Traumatic Medical History: Reports: None Hematology: Denies: Anemia, Bleeding Tendencies Infectious Medical History: Reports: Hepatitis C Past Surgical History Past Surgical History: Reports: Orthopedic Surgery - right 5th finger and left thumb Social History Information Source: Patient Lives with: Alone Smoking Status: Current Every Day Smoker Frequency of Alcohol Use: Heavy Hx Recreational Drug Use: No Drugs: None Hx Prescription Drug Abuse: No - Advance Directive Resuscitation Status: Full Code Surrogate healthcare decision maker:: Birgit Mcneal Family History Family History: Arthritis, COPD, Hypertension, Other - CHF Parental Family History Reviewed: Yes Children Family History Reviewed: No Sibling(s) Family History Reviewed.: Yes Medication/Allergy Home Medications: Chlorthalidone [Hygroton 25 mg Tablet] 25 mg PO DAILY #30 tablet 03/05/19 Clindamycin HCl 300 mg PO Q6H #24 capsule 03/05/19 Oxycodone HCl/Acetaminophen [Percocet 5-325 mg Tablet] 1 tab PO Q6HP PRN #12 tablet 03/05/19 Allergies/Adverse Reactions: levofloxacin [From Levaquin] Allergy (Verified 05/24/19 15:47) Review of Systems Constitutional: ABSENT: chills, fever(s) Eyes: ABSENT: visual disturbances, other - Ocular pain Ears: ABSENT: hearing changes, other - Ear pain Nose, Mouth, and Throat: ABSENT: mouth pain, sore throat Cardiovascular: ABSENT: chest pain, palpitations Respiratory: ABSENT: cough, dyspnea Gastrointestinal: ABSENT: abdominal pain, constipation, diarrhea, nausea, vomiting Genitourinary: ABSENT: dysuria, hematuria Musculoskeletal: ABSENT: joint swelling, muscle weakness Integumentary: PRESENT: as per HPI, other - Painful swelling with redness and increased warmth in the right distal forearm wrist and hand. Recent exposure to bedbugs, scabies and a variety of biting insects.. ABSENT: pruritus, rash Neurological: ABSENT: confusion, convulsions, focal weakness, memory loss, syncope Psychiatric: ABSENT: anxiety, depression Endocrine: ABSENT: cold intolerance, heat intolerance Hematologic/Lymphatic: ABSENT: easy bleeding, easy bruising Physical Exam Vital Signs: Temp Pulse Resp BP Pulse Ox 97.7 F 94 16 131/82 H 95 05/24/19 17:01 05/24/19 17:01 05/24/19 17:01 05/24/19 17:01 05/24/19 17:01 Intake & Output 05/22/19 05/23/19 05/24/19 23:59 23:59 23:59 Weight 87 kg General appearance: PRESENT: cooperative, mild distress - Due to pain in his right hand and wrist Head exam: PRESENT: atraumatic, normocephalic Eye exam: PRESENT: conjunctiva pink. ABSENT: conjunctival injection, scleral icterus Ear exam: PRESENT: normal external ear exam. ABSENT: bleeding, drainage Mouth exam: PRESENT: dry mucosa, neck supple Neck exam: ABSENT: JVD, thyromegaly, tracheal deviation Respiratory exam: PRESENT: clear to auscultation ankit, symmetrical, unlabored Cardiovascular exam: PRESENT: RRR. ABSENT: clicks, gallop, rubs Pulses: PRESENT: normal radial pulses, normal dorsalis pedis pul Vascular exam: PRESENT: normal capillary refill. ABSENT: pallor GI/Abdominal exam: PRESENT: normal bowel sounds, soft Rectal exam: PRESENT: deferred Extremities exam: PRESENT: other - Erythema and edema with local tenderness to palpation and increased warmth on exam of the right distal forearm wrist and hand.. ABSENT: joint swelling, pedal edema Musculoskeletal exam: PRESENT: ambulatory, tenderness - Erythema and edema with local tenderness to palpation and increased warmth on exam of the right distal forearm wrist and hand.. ABSENT: deformity, dislocation Neurological exam: PRESENT: alert, oriented to person, oriented to place, oriented to time, oriented to situation, CN II-XII grossly intact. ABSENT: motor sensory deficit Psychiatric exam: PRESENT: appropriate affect, normal mood Skin exam: PRESENT: dry, intact, warm, other - Erythema and edema with local tenderness to palpation and increased warmth on exam of the right distal forearm wrist and hand.. ABSENT: jaundice, rash, urticaria Results Laboratory Results: 05/24/19 19:35 05/24/19 19:35 05/24/19 05/24/19 19:35 19:35 WBC 13.0 H RBC 4.41 Hgb 13.8 Hct 40.7 MCV 92 MCH 31.4 MCHC 34.0 RDW 14.1 H Plt Count 194 Seg Neutrophils % 65.4 Lymphocytes % 21.4 Monocytes % 12.4 Eosinophils % 0.3 Basophils % 0.5 Absolute Neutrophils 8.5 H Absolute Lymphocytes 2.8 Absolute Monocytes 1.6 H Absolute Eosinophils 0.0 Absolute Basophils 0.1 Sodium 135.6 L Potassium 3.3 L Chloride 96 L Carbon Dioxide 28 Anion Gap 12 BUN 7 Creatinine 0.54 Est GFR ( Amer) > 60 Est GFR (Non-Af Amer) > 60 Glucose 92 Calcium 9.6 Total Bilirubin 1.1 AST 78 H ALT 41 Alkaline Phosphatase 170 H C-Reactive Protein 52.0 H Total Protein 8.4 H Albumin 3.9 Impressions: Forearm X-Ray 05/24/19 18:29 IMPRESSION: No fracture or radiopaque foreign body. Hand X-Ray 05/24/19 18:29 IMPRESSION: No acute fracture or dislocation. 5th DIP flexion deformity, chronic appearing. Assessment and Plan - Diagnosis (1) Cellulitis of right wrist Is this a current diagnosis for this admission?: Yes Plan: Patient is admitted to observation status for initiation of antibiotic therapy. Patient will be started on Bactrim DS 2 tablets p.o. twice daily and cephalexin 500 mg p.o. 4 times daily. A CBC, metabolic profile and magnesium level will be obtained in the morning as part of the follow-up of the patient's overall care. Patient will use morphine sulfate 2 to 4 mg IV every 2 hours as needed for pain on a sliding scale basis. (2) Hypokalemia Is this a current diagnosis for this admission?: Yes Plan: Patient's hypokalemia will be treated with oral potassium replacement, utilizing K. Dur 20 mEq p.o. twice daily. Patient's metabolic profile will be reevaluated in the morning. (3) Alcohol dependence Qualifiers: Substance use status: uncomplicated Qualified Code(s): F10.20 - Alcohol dependence, uncomplicated Is this a current diagnosis for this admission?: Yes Plan: Patient has a history of heavy alcohol abuse/dependence and therefore will receive Valium 10 mg p.o. every 6 hours as a precaution against withdrawal symptoms during his hospitalization. He will also have ordered Valium 10 mg IV q. one hour as needed severe anxiety/tremors/seizures. Thorazine 25 mg IV every 8 hours will also be available as needed severe agitation/hallucinations. Alcohol use cessation has been advised. (4) Tobacco use disorder, severe, dependence Is this a current diagnosis for this admission?: Yes Plan: Tobacco use cessation is advised and counseled briefly. A nicotine replacement patch will be available for the patient's use. - Time Time Spent with patient: 25-34 minutes Smoking Cessation Education: 3 to 10 minutes Medications reviewed and adjusted accordingly: Yes Anticipated discharge: Home Within: within 48 hours - Inpatient Certification Based on my medical assessment, after consideration of the patient's comorbidities, presenting symptoms, or acuity I expect that the services needed warrant INPATIENT care.: No I certify that my determination is in accordance with my understanding of Medicare's requirements for reasonable and necessary INPATIENT services [42 CFR 412.3e].: No Medical Necessity: Need Close Monitoring Due to Risk of Patient Decompensation, Need for Pain Control
[2019-05-25] MEDS: CEPHALEXIN 500 MG CAPSULE PO SCH (06:08)
[2019-05-25] MEDS: HEPARIN SOD (PORCINE) 5,000 UNIT/ML 1 ML VIAL SUBCUT SCH ×3 (06:09→21:57)
[2019-05-25] MEDS: DIAZEPAM 5 MG TABLET PO SCH ×3 (06:09→17:45)
[2019-05-25 06:12] LABS: HEMATOCRIT 35.8 % (37.9-51.0); HEMOGLOBIN 12.1 g/dL (13.5-17.0); MEAN CORPUSCULAR HEMOGLOBIN 31.4 pg (27.0-33.4); MEAN CORPUSCULAR HGB CONC 33.9 g/dL (32.0-36.0); MEAN CORPUSCULAR VOLUME 92 fl (80-97); PLATELET COUNT 155 10^3/uL (150-450); RED BLOOD COUNT 3.87 10^6/uL (4.35-5.55); RED CELL DISTRIBUTION WIDTH 13.8 % (11.5-14.0); WHITE BLOOD COUNT 11.9 10^3/uL (4.0-10.5)
[2019-05-25 06:59] LABS: ALANINE AMINOTRANSFERASE 33 U/L (21-72); ALBUMIN 3.2 g/dL (3.5-5.0); ALKALINE PHOSPHATASE 139 U/L (38-126); ANION GAP 9 (5-19); ASPARTATE AMINO TRANSFERASE 61 U/L (17-59); BILIRUBIN,DIRECT 0.3 mg/dL (0.0-0.4); BILIRUBIN,TOTAL 1.1 mg/dL (0.2-1.3); BLOOD UREA NITROGEN 10 mg/dL (7-20); CALCIUM 8.3 mg/dL (8.4-10.2); CARBON DIOXIDE 26 mmol/L (22-30); CHLORIDE 97 mmol/L (98-107); CHOLESTEROL 107.36 mg/dL (0-200); GLUCOSE 119 mg/dL (75-110); POTASSIUM 3.6 mmol/L (3.6-5.0); SODIUM 132.4 mmol/L (137-145); TRIGLYCERIDES 95 mg/dL (<150)
[2019-05-25 07:09] LABS: DIRECT LDL 67 mg/dL (<100)
[2019-05-25 07:39] LABS: FREE T3 5.5 pg/mL (2.77-5.27); FREE T4 (FREE THYROXINE) 1.5 ng/dL (0.78-2.19)
[2019-05-25 07:53] LABS: THYROID STIMULATING HORMONE 6.64 uIU/mL (0.47-4.68)
[2019-05-25] MEDS: DOCUSATE SODIUM 100 MG CAPSULE PO SCH ×2 (09:31→17:45)
[2019-05-25] MEDS: FAMOTIDINE 20 MG TABLET PO SCH ×2 (09:31→21:58)
[2019-05-25] MEDS: MAGNESIUM OXIDE 400 MG TABLET PO SCH ×2 (09:32→17:45)
[2019-05-25] MEDS ORDERED: SULFAMETHOXAZOLE/TRIMETHOPRIM 800-160 MG TABLET PO SCH (10:00)
[2019-05-25] MEDS ORDERED: IBUPROFEN 800 MG TABLET PO PRN (11:25)
[2019-05-25] MEDS: CLINDAMYCIN 600 MG/D5W RTU 600 MG/50 ML RTUPB IV SCH ×2 (14:16→21:57)
[2019-05-25] MEDS: DIAZEPAM INJ 10 MG/2 ML DISP.SYRIN IV PRN ×2 (14:29→22:17)
[2019-05-25] MEDS: HYDROCODONE/ACETAMINOPHEN 5-325 MG TABLET PO PRN ×2 (14:29→22:16)
--- NOTE | 2019-05-25 19:19 | Progress Note Acknowledgement ---
Progress Note Acknowledgement Progess Note Acknowledgement: I, the undersigned member of the medical staff with appropriate privileges and with supervisory authority over Tiffanie Mireles, a [facility] allied health professional, acknowledge that I have reviewed the progress notes entered on this patient, and in my professional judgment believe that the assessment made and/or any care evidenced was appropriate
--- NOTE | 2019-05-25 19:29 | PDOC PROGRESS REPORT ---
Subjective Progress Note for:: 05/25/19 Subjective:: Patient is a 54-year-old male with a past medical history of hypertension, hyperlipidemia, alcohol and tobacco dependency who was admitted 05/24/2019 for right upper extremity cellulitis. Patient was seen on morning rounds with significant other present. He is found resting in bed comfortably on room air. He reports continued discomfort, edema, and erythema to his right forearm and hand. He reports that this is been present for approximately 3 days; gradually worsening. He believes that the infection is related to bedbug infestation; he denies specific injury to his hand. He is asked about the lesions to his forearm; and stating that these are related to bedbug bites. He denies IV drug use. He further denies fever, chills, chest pain, palpitations, dyspnea, orthopnea, abnormal pain, nausea vomiting and diarrhea. He does request pain medication; reports that he was previously on a pain medication regiment but currently uses [id number] analgesics. He has no other questions or concerns at this time. No concerns per nursing. Reason For Visit: CELLULITIS RIGHT DISTAL FOREARM WRIST AND HAND Physical Exam Vital Signs: Temp Pulse Resp BP Pulse Ox 98 F 103 H 16 117/84 94 05/25/19 14:27 05/25/19 14:27 05/25/19 14:27 05/25/19 14:27 05/25/19 14:27 Intake & Output 05/24/19 05/25/19 05/26/19 06:59 06:59 06:59 Intake Total 1050 50 Balance 1050 50 Weight 87 kg 91.1 kg General appearance: PRESENT: no acute distress, disheveled, obese, well- developed Head exam: PRESENT: atraumatic, normocephalic Eye exam: PRESENT: conjunctiva pink, EOMI, PERRLA. ABSENT: scleral icterus Ear exam: PRESENT: normal external ear exam Mouth exam: PRESENT: moist, tongue midline Neck exam: ABSENT: carotid bruit, JVD, lymphadenopathy, thyromegaly Respiratory exam: PRESENT: clear to auscultation ankit. ABSENT: rales, rhonchi, wheezes Cardiovascular exam: PRESENT: RRR. ABSENT: diastolic murmur, rubs, systolic murmur Pulses: PRESENT: normal dorsalis pedis pul Vascular exam: PRESENT: normal capillary refill GI/Abdominal exam: PRESENT: normal bowel sounds, soft. ABSENT: distended, guarding, mass, organolmegaly, rebound, tenderness Rectal exam: PRESENT: deferred Extremities exam: PRESENT: full ROM. ABSENT: calf tenderness, clubbing, pedal edema Neurological exam: PRESENT: alert, awake, oriented to person, oriented to place, oriented to time, oriented to situation, CN II-XII grossly intact. ABSENT: motor sensory deficit Psychiatric exam: PRESENT: appropriate affect, normal mood. ABSENT: homicidal ideation, suicidal ideation Skin exam: PRESENT: dry, erythema, warm, other - Erythema and tight edema to the posterior right hand extending circumferentially to the mid forearm. Patient is noted to have multiple small (pinpoint sized) legions to the anterior portion of forearm.. ABSENT: cyanosis, rash Results Laboratory Results: 05/25/19 06:00 05/25/19 06:00 05/24/19 05/24/19 05/25/19 19:35 19:35 06:00 WBC 13.0 H 11.9 H RBC 4.41 3.87 L Hgb 13.8 12.1 L Hct 40.7 35.8 L MCV 92 92 MCH 31.4 31.4 MCHC 34.0 33.9 RDW 14.1 H 13.8 Plt Count 194 155 Seg Neutrophils % 65.4 Lymphocytes % 21.4 Monocytes % 12.4 Eosinophils % 0.3 Basophils % 0.5 Absolute Neutrophils 8.5 H Absolute Lymphocytes 2.8 Absolute Monocytes 1.6 H Absolute Eosinophils 0.0 Absolute Basophils 0.1 Sodium 135.6 L Potassium 3.3 L Chloride 96 L Carbon Dioxide 28 Anion Gap 12 BUN 7 Creatinine 0.54 Est GFR ( Amer) > 60 Est GFR (Non-Af Amer) > 60 Glucose 92 Calcium 9.6 Magnesium Total Bilirubin 1.1 AST 78 H ALT 41 Alkaline Phosphatase 170 H C-Reactive Protein 52.0 H Total Protein 8.4 H Albumin 3.9 Triglycerides Cholesterol LDL Cholesterol Direct VLDL Cholesterol HDL Cholesterol TSH Free T4 Free T3 pg/mL 05/25/19 05/25/19 06:00 06:00 WBC RBC Hgb Hct MCV MCH MCHC RDW Plt Count Seg Neutrophils % Lymphocytes % Monocytes % Eosinophils % Basophils % Absolute Neutrophils Absolute Lymphocytes Absolute Monocytes Absolute Eosinophils Absolute Basophils Sodium 132.4 L Potassium 3.6 Chloride 97 L Carbon Dioxide 26 Anion Gap 9 BUN 10 Creatinine 0.58 Est GFR ( Amer) > 60 Est GFR (Non-Af Amer) > 60 Glucose 119 H Calcium 8.3 L Magnesium 1.2 L* Total Bilirubin 1.1 AST 61 H ALT 33 Alkaline Phosphatase 139 H C-Reactive Protein Total Protein 7.0 Albumin 3.2 L Triglycerides 95 Cholesterol 107.36 LDL Cholesterol Direct 67 VLDL Cholesterol 19.0 HDL Cholesterol 28 L TSH 6.64 H Free T4 1.50 Free T3 pg/mL 5.50 H Impressions: Forearm X-Ray 05/24/19 18:29 IMPRESSION: No fracture or radiopaque foreign body. Hand X-Ray 05/24/19 18:29 IMPRESSION: No acute fracture or dislocation. 5th DIP flexion deformity, chronic appearing. Assessment and Plan - Diagnosis (1) Cellulitis of right upper extremity Is this a current diagnosis for this admission?: Yes Plan: Blood cultures are pending. Patient is admitted to the medical floor. He is empirically been placed on IV clindamycin. Of note, the patient was admitted 2 months ago for cellulitis to the left upper extremity which resolved with clindamycin therapy. Will obtain ultrasound to rule out DVT. Analgesics as needed. (2) Alcohol dependence Qualifiers: Substance use status: uncomplicated Qualified Code(s): F10.20 - Alcohol dependence, uncomplicated Is this a current diagnosis for this admission?: Yes Plan: Patient has a history of heavy alcohol abuse/dependence He is provided scheduled Valium 10 mg p.o. every 6 hours. He is also provided Valium 10 mg IV hourly as needed for anxiety/agitation/wi thdrawal symptoms. Thorazine 25 mg IV every 8 hours for severe agitation/hallucinations. Fall, seizure, aspiration precautions in place (3) Tobacco use disorder, severe, dependence Is this a current diagnosis for this admission?: Yes Plan: Tobacco use cessation is advised and counseled. A nicotine replacement patch will be available for the patient's use. (4) Hypokalemia Is this a current diagnosis for this admission?: Yes Plan: Replete. (5) Hypomagnesemia Is this a current diagnosis for this admission?: Yes Plan: Will provide oral replacement. Follow up magnesium level in am. - Time Time Spent with patient: 25-34 minutes Medications reviewed and adjusted accordingly: Yes Anticipated discharge: Home Within: within 48 hours
[2019-05-26] MEDS: DIAZEPAM 5 MG TABLET PO SCH ×5 (00:41→23:54)
[2019-05-26] MEDS: DIAZEPAM INJ 10 MG/2 ML DISP.SYRIN IV PRN (01:59)
[2019-05-26] MEDS: CLINDAMYCIN 600 MG/D5W RTU 600 MG/50 ML RTUPB IV SCH (06:07)
[2019-05-26] MEDS: HEPARIN SOD (PORCINE) 5,000 UNIT/ML 1 ML VIAL SUBCUT SCH ×3 (06:21→22:16)
[2019-05-26] MEDS: HYDROCODONE/ACETAMINOPHEN 5-325 MG TABLET PO PRN ×2 (06:38→13:13)
[2019-05-26 07:24] LABS: HEMATOCRIT 37.3 % (37.9-51.0); HEMOGLOBIN 12.5 g/dL (13.5-17.0); MEAN CORPUSCULAR HEMOGLOBIN 31.1 pg (27.0-33.4); MEAN CORPUSCULAR HGB CONC 33.6 g/dL (32.0-36.0); MEAN CORPUSCULAR VOLUME 93 fl (80-97); PLATELET COUNT 181 10^3/uL (150-450); RED BLOOD COUNT 4.03 10^6/uL (4.35-5.55); RED CELL DISTRIBUTION WIDTH 13.8 % (11.5-14.0); WHITE BLOOD COUNT 11.9 10^3/uL (4.0-10.5)
[2019-05-26 07:48] LABS: ANION GAP 9 (5-19); BLOOD UREA NITROGEN 9 mg/dL (7-20); CALCIUM 8.6 mg/dL (8.4-10.2); CARBON DIOXIDE 27 mmol/L (22-30); CHLORIDE 99 mmol/L (98-107); GLUCOSE 147 mg/dL (75-110); SODIUM 135.1 mmol/L (137-145)
[2019-05-26] MEDS: DOCUSATE SODIUM 100 MG CAPSULE PO SCH ×2 (09:18→17:23)
[2019-05-26] MEDS: FAMOTIDINE 20 MG TABLET PO SCH ×2 (09:18→22:16)
[2019-05-26] MEDS: MAGNESIUM OXIDE 400 MG TABLET PO SCH ×2 (09:18→17:23)
[2019-05-26] MEDS ORDERED: VANCOMYCIN HCL 0 MG in DEXTROSE 5%-WATER 250 ML IV NR (11:30)
--- NOTE | 2019-05-26 14:09 | PDOC PROGRESS REPORT ---
Subjective Progress Note for:: 05/26/19 Subjective:: Patient is a 54-year-old male with a past medical history of hypertension, hyperlipidemia, alcohol and tobacco dependency who was admitted 05/24/2019 for right upper extremity cellulitis. Patient was seen on morning rounds. He is found resting in bed comfortably on r oom air. He reports continued discomfort, edema, and erythema to his right forearm and hand. He confirms that the erythema is slightly improved, however it edema is worsened. He now has difficulty with flexion of his fingers and wrist. He reports increased pain with passive flexion of right third finger. Patient tells me that he feels that his hand is worsened today as compared to yesterday. He denies fever, chills, chest pain, palpitations, dyspnea, orthopnea, abnormal pain, nausea vomiting and diarrhea. He has no other questions or concerns today. No concerns per nursing. Reason For Visit: RUE CELLULITIS Physical Exam Vital Signs: Temp Pulse Resp BP Pulse Ox 97.8 F 89 20 148/77 H 85 L 05/26/19 11:04 05/26/19 11:04 05/26/19 11:04 05/26/19 11:04 05/26/19 11:04 Intake & Output 05/25/19 05/26/19 05/27/19 06:59 06:59 06:59 Intake Total 1050 1020 530 Balance 1050 1020 530 Weight 87 kg 92.2 kg General appearance: PRESENT: no acute distress, cooperative, disheveled, morbidly obese, well-developed, well-nourished Head exam: PRESENT: atraumatic, normocephalic Eye exam: PRESENT: conjunctiva pink, EOMI, PERRLA. ABSENT: scleral icterus Mouth exam: PRESENT: moist, tongue midline Teeth exam: PRESENT: poor dentation Neck exam: ABSENT: carotid bruit, JVD, lymphadenopathy, thyromegaly Respiratory exam: PRESENT: clear to auscultation ankit, symmetrical, unlabored. ABSENT: rales, rhonchi, wheezes Cardiovascular exam: PRESENT: RRR, +S1, +S2. ABSENT: diastolic murmur, rubs, systolic murmur Pulses: PRESENT: normal dorsalis pedis pul Vascular exam: PRESENT: pallor - To palm of right hand with dusky right fingernail beds GI/Abdominal exam: PRESENT: normal bowel sounds, soft. ABSENT: distended, guarding, mass, organolmegaly, rebound, tenderness Rectal exam: PRESENT: deferred Extremities exam: PRESENT: full ROM. ABSENT: calf tenderness, clubbing, pedal edema Musculoskeletal exam: PRESENT: tenderness - Right upper extremity Neurological exam: PRESENT: alert, awake, oriented to person, oriented to place, oriented to time, oriented to situation, CN II-XII grossly intact. ABSENT: motor sensory deficit Psychiatric exam: PRESENT: appropriate affect, normal mood. ABSENT: homicidal ideation, suicidal ideation Skin exam: PRESENT: dry, erythema, warm, other - Erythema and tight edema to the posterior right hand extending circumferentially to the mid forearm. Erythema appears slightly improved. Edema is now worsened encompassing fingers and palm of hand. Patient is noted to have pallor to his palm with dusky fingernail beds; difficult to assess capillary refill.. ABSENT: cyanosis, rash Results Laboratory Results: 05/26/19 06:26 05/26/19 06:26 05/26/19 05/26/19 05/26/19 06:26 06:26 11:52 WBC 11.9 H RBC 4.03 L Hgb 12.5 L Hct 37.3 L MCV 93 MCH 31.1 MCHC 33.6 RDW 13.8 Plt Count 181 Sodium 135.1 L Potassium 4.0 Chloride 99 Carbon Dioxide 27 Anion Gap 9 BUN 9 Creatinine 0.59 Est GFR ( Amer) > 60 Est GFR (Non-Af Amer) > 60 Glucose 147 H Calcium 8.6 Magnesium 1.4 L C-Reactive Protein 71.7 H Impressions: Forearm X-Ray 05/24/19 18:29 IMPRESSION: No fracture or radiopaque foreign body. Hand X-Ray 05/24/19 18:29 IMPRESSION: No acute fracture or dislocation. 5th DIP flexion deformity, chronic appearing. Assessment and Plan - Diagnosis (1) Cellulitis of right upper extremity Is this a current diagnosis for this admission?: Yes Plan: Appears worsened; and with tight edema, decreased mobility, and increased pain Venous Doppler ultrasound is negative for DVT/SVT Right hand and forearm x-rays benign Blood cultures are negative at 24 hours Received IV clindamycin x24 hours; discontinue today Patient is admitted to the medical floor. Will escalate antibiotics to IV Zosyn and vancomycin due to clinical worsening of cellulitis. Have also discussed the patient with Dr. Simpson; appreciate his consultation and assistance. Analgesics as needed. Keep extremity elevated (2) Alcohol dependence Qualifiers: Substance use status: uncomplicated Qualified Code(s): F10.20 - Alcohol dependence, uncomplicated Is this a current diagnosis for this admission?: Yes Plan: Patient has a history of heavy alcohol abuse/dependence; no evidence of withdrawal at this time He is provided scheduled Valium 10 mg p.o. every 6 hours. He is also provided Valium 10 mg IV hourly as needed for anxiety/agitation/withdrawal symptoms; has required 3 doses over last 24 hours Thorazine 25 mg IV every 8 hours for severe agitation/hallucinations. Fall, seizure, aspiration precautions in place (3) Tobacco use disorder, severe, dependence Is this a current diagnosis for this admission?: Yes Plan: Tobacco use cessation is advised and counseled. A nicotine replacement patch will be available for the patient's use. (4) Hypokalemia Is this a current diagnosis for this admission?: Yes Plan: Replete. Continue to monitor with daily chemistries. (5) Hypomagnesemia Is this a current diagnosis for this admission?: Yes Plan: Improved; 1.2 -> 1.4 Continue to provide oral replacement. Follow up magnesium level in am. - Time Time Spent with patient: 25-34 minutes Medications reviewed and adjusted accordingly: Yes Anticipated discharge: Home - Inpatient Certification Based on my medical assessment, after consideration of the patient's comorbidities, presenting symptoms, or acuity I expect that the services needed warrant INPATIENT care.: Yes I certify that my determination is in accordance with my understanding of Medicare's requirements for reasonable and necessary INPATIENT services [42 CFR 412.3e].: Yes Medical Necessity: Need Close Monitoring Due to Risk of Patient Decompensation, Need for Pain Control, Need for IV Antibiotics, Risk of Complication if Not Cared For in Hospital, Risk of Diagnosis Which Will Require Inpatient Eval/Care/Monitoring
[2019-05-26 14:26] LABS: URINE BARBITURATES SCREEN NEGATIVE; URINE COCAINE SCREEN NEGATIVE; URINE MARIJUANA (THC) SCREEN NEGATIVE; URINE METHADONE SCREEN NEGATIVE; URINE PHENCYCLIDINE SCREEN NEGATIVE
[2019-05-26 14:32] LABS: URINE BENZODIAZEPINES SCREEN UNCONFIRMED POSITIVE
[2019-05-26 14:33] LABS: URINE AMPHETAMINES SCREEN UNCONFIRMED POSITIVE
[2019-05-26] MEDS: VANCOMYCIN HCL 1,500 MG in DEXTROSE 5%-WATER 250 ML IV SCH ×2 (15:02→22:16)
[2019-05-26] MEDS: PIPERACILLIN SODIUM/TAZOBACTAM 3.375 GM in NORMAL SALINE 100 ML IV SCH ×2 (16:35→21:32)
[2019-05-26] MEDS ORDERED: HYDROCODONE/ACETAMINOPHEN 5-325 MG TABLET PO PRN (17:30)
[2019-05-26] MEDS ORDERED: DEXTROSE 40% GEL 15 GM TUBE PO PRN ×6 (17:41→18:53)
[2019-05-26] MEDS ORDERED: DEXTROSE 50%-WATER 25 GM/50 ML DISP.SYRIN IV PRN ×6 (17:41→18:53)
[2019-05-26] MEDS ORDERED: GLUCAGON,HUMAN RECOMB 1 MG INJ SUBCUT PRN ×3 (17:41→18:53)
--- NOTE | 2019-05-26 19:07 | PDOC CONSULTATION ---
Consultation Consult Date: 05/26/19 Attending physician:: MAKSIM MEDELLIN Provider Consulted: RISA PORRAS History of Present Illness Admission Date/PCP: 05/26/19 12:08 Patient complains of: Right hand pain and swelling History of Present Illness: JOSE MCNEAL is a 54 year old male patient presented to emergency room on 05/24/2019 with worsening pain and swelling of the right hand. Patient denies specific trauma but there is questionable exposure to bedbugs. Patient states since the past 48 hours of IV antibiotics he has failed to see significant improvement and continues to have swelling. He states on the left hand he had a similar issue and actually feels as though the left hand was worse but ultimately received IV antibiotics and saw improvement. Patient denies fever or chills currently. Pain 8/10. Denies numbness. Past Medical History Cardiac Medical History: Reports: Hyperlipidema, Hypertension Denies: Atrial Fibrillation, Congestive Heart Failure, Coronary Artery Disease, Myocardial Infarction Pulmonary Medical History: Reports: Bronchitis, Pneumonia Denies: Asthma, Chronic Obstructive Pulmonary Disease (COPD), Respiratory Failure, Tuberculosis EENT Medical History: Reports: None Denies: Cataracts, Ears - Hearing aids Neurological Medical History: Reports: None Denies: Hemorrhagic CVA, Ischemic CVA, Multiple Sclerosis, Seizures Endocrine Medical History: Reports: None Denies: Diabetes Mellitus Type 1, Diabetes Mellitus Type 2, Hyperthyroidism, Hypothyroidism Renal/ Medical History: Reports: None Denies: Chronic Kidney Disease, Nephrolithiasis Malignancy Medical History: Reports: Skin Cancer - Basal cell carcinoma GI Medical History: Reports: Hepatitis - Hepatitis C Denies: Cirrhosis, Crohn's Disease, Ulcerative Colitis Musculoskeltal Medical History: Reports: Arthritis Denies: Fibromyalgia, Gout Skin Medical History: Denies: Eczema, Psoriasis Psychiatric Medical History: Reports: None, Alcohol Dependency, Tobacco Dependency Denies: Depression, Substance Abuse Traumatic Medical History: Reports: None Hematology: Denies: Anemia, Bleeding Tendencies Infectious Medical History: Reports: Hepatitis C Past Surgical History Past Surgical History: Reports: Orthopedic Surgery - right 5th finger and left thumb Social History Lives with: Alone Smoking Status: Current Every Day Smoker Frequency of Alcohol Use: Heavy Hx Recreational Drug Use: No Drugs: None Hx Prescription Drug Abuse: No - Advance Directive Resuscitation Status: Full Code Family History Family History: Arthritis, COPD, Hypertension, Other - CHF Parental Family History Reviewed: No Children Family History Reviewed: No Sibling(s) Family History Reviewed.: No Medication/Allergy Home Medications: No Home Medications 05/25/19 Allergies/Adverse Reactions: levofloxacin [From Levaquin] Allergy (Verified 05/24/19 15:47) Review of Systems Constitutional: ABSENT: chills, fever(s), headache(s), weight gain, weight loss Eyes: ABSENT: visual disturbances Ears: ABSENT: hearing changes Cardiovascular: ABSENT: chest pain, dyspnea on exertion, edema, orthropnea, palpitations Respiratory: ABSENT: cough, hemoptysis Gastrointestinal: ABSENT: abdominal pain, constipation, diarrhea, hematemesis, hematochezia, nausea, vomiting Genitourinary: ABSENT: dysuria, hematuria Musculoskeletal: PRESENT: as per HPI Integumentary: ABSENT: rash, wounds Neurological: ABSENT: abnormal gait, abnormal speech, confusion, dizziness, focal weakness, syncope Psychiatric: ABSENT: anxiety, depression, homidical ideation, suicidal ideation Endocrine: ABSENT: cold intolerance, heat intolerance, menstrual abnormalities, polydipsia, polyuria Hematologic/Lymphatic: ABSENT: easy bleeding, easy bruising, lymphadenopathy Physical Exam Vital Signs: Temp Pulse Resp BP Pulse Ox 98.4 F 93 20 144/84 H 93 05/26/19 15:08 05/26/19 15:08 05/26/19 15:08 05/26/19 15:08 05/26/19 15:08 Intake & Output 05/25/19 05/26/19 05/27/19 06:59 06:59 06:59 Intake Total 1050 1020 1360 Output Total 600 Balance 1050 1020 760 Weight 87 kg 92.2 kg General appearance: PRESENT: no acute distress, well-developed, well-nourished Head exam: PRESENT: atraumatic, normocephalic Eye exam: PRESENT: conjunctiva pink, EOMI, PERRLA. ABSENT: scleral icterus Ear exam: PRESENT: normal external ear exam Mouth exam: PRESENT: moist, tongue midline Neck exam: PRESENT: full ROM. ABSENT: carotid bruit, JVD, lymphadenopathy, thyromegaly Cardiovascular exam: PRESENT: RRR. ABSENT: diastolic murmur, rubs, systolic murmur Pulses: PRESENT: normal dorsalis pedis pul, +2 pedal pulses bilateral Vascular exam: PRESENT: normal capillary refill GI/Abdominal exam: PRESENT: normal bowel sounds, soft. ABSENT: distended, guarding, mass, organolmegaly, rebound, tenderness Rectal exam: PRESENT: deferred Musculoskeletal exam: PRESENT: other - Right hand: Significant swelling along the dorsum of the hand with erythema extending dorsally along the forearm and medially. Intact flexion/extension of the IP/MP joints. No pain with passive flexion/extension. Compartments swollen but soft and compressible no sign of compartment syndrome. Two-point discrimination 5 mm throughout the digits. Cap refill less than 2 seconds normal skin turgor. No evidence of open wound. No tenderness on the thenar or hypo-thenar eminence. No tenderness volarly along the pronator quadratus or palmar aspect of the hand. Tenderness palpation dorsally along the scapholunate interval. No pain with mid wrist range of motion of her pain with terminal flexion/extension. Chronic flexion deformity of the fifth digit at the DIP joint Neurological exam: PRESENT: alert, awake, oriented to person, oriented to place, oriented to time, oriented to situation, CN II-XII grossly intact. ABSENT: motor sensory deficit Psychiatric exam: PRESENT: appropriate affect, normal mood. ABSENT: homicidal ideation, suicidal ideation Skin exam: PRESENT: dry, intact, warm. ABSENT: cyanosis, rash Results Laboratory Results: 05/26/19 06:26 05/26/19 06:26 05/26/19 05/26/19 05/26/19 06:26 06:26 11:52 WBC 11.9 H RBC 4.03 L Hgb 12.5 L Hct 37.3 L MCV 93 MCH 31.1 MCHC 33.6 RDW 13.8 Plt Count 181 Sodium 135.1 L Potassium 4.0 Chloride 99 Carbon Dioxide 27 Anion Gap 9 BUN 9 Creatinine 0.59 Est GFR ( Amer) > 60 Est GFR (Non-Af Amer) > 60 Glucose 147 H Calcium 8.6 Magnesium 1.4 L C-Reactive Protein 71.7 H Impressions: Forearm X-Ray 05/24/19 18:29 IMPRESSION: No fracture or radiopaque foreign body. Hand X-Ray 05/24/19 18:29 IMPRESSION: No acute fracture or dislocation. 5th DIP flexion deformity, chronic appearing. Status: Image reviewed by me - I have reviewed patient's previous radiographs demonstrate dorsal swelling and chronic flexion deformity of the fifth digit no evidence of osseous abnormality. Assessment & Plan - Diagnosis (1) Cellulitis of right wrist Is this a current diagnosis for this admission?: Yes Plan: Patient has evidence of cellulitis of the right wrist currently there is no evidence of vascular compromise or neurologic compromise. Patient does have significant swelling but no sign of compartment syndrome. I attempted aspiration at the bedside and no fluid was aspirated from the joint or the dorsum of the hand however deep abscess remains a possibility along with septic arthritis given patient's failed improvement however in the past patient saw improvement with clindamycin but was initially started on vancomycin and Zosyn which may be the appropriate treatment at this time. Thus patient will be switched to vancomycin and Zosyn as per hospitalist recommendation. In the meantime we will obtain MRI to further evaluate possible occult abscess if present patient may require definitive operative treatment. Currently no surgical indications for operative intervention.
[2019-05-26] MEDS: HYDRALAZINE HCL INJ/PF 20 MG/1 ML SDV IV PRN (19:44)
--- NOTE | 2019-05-26 19:55 | RADIOLOGY REPORT (SQ) ---
EXAM DESCRIPTION: MRI RT UPPER EXTREMITY WITHOUT COMPLETED DATE/TIME: 05/26/2019 7:22 pm REASON FOR STUDY: edema, cellulitis COMPARISON: None. TECHNIQUE: Multiplanar imaging of the right hand and distal forearm to include fat and fluid sensiti ve sequences. LIMITATIONS: None. FINDINGS: BONE MARROW: No marrow signal alteration. Specifically no marrow replacement or marrow ed rafa. No evidence for osteomyelitis. No cortical break through. SOFT TISSUES: There is diffuse soft tissue swelling over the dorsum of the right hand, from the PIP j oint region through the distal forearm. Fluid is present in the extensor digitorum extensor hallucis and adductor hallucis tendon sheath. Flexor tendons and carpal tunnel intact. OTHER: No other significant finding. IMPRESSION: NO EVIDENCE FOR OSTEOMYELITIS. TECHNICAL DOCUMENTATION: JOB ID: [id number] [employer]- All Rights Reserved Reading location - IP/workstation name: [email or web address]
[2019-05-26] MEDS: KETOROLAC TROMETHAMINE INJ/PF 30 MG/1 ML SDV IV PRN (19:58)
[2019-05-27] MEDS: PIPERACILLIN SODIUM/TAZOBACTAM 3.375 GM in NORMAL SALINE 100 ML IV SCH ×4 (02:11→23:09)
[2019-05-27] MEDS: KETOROLAC TROMETHAMINE INJ/PF 30 MG/1 ML SDV IV PRN (03:10)
[2019-05-27 06:10] LABS: ABSOLUTE BASOPHILS # (AUTO) 0.1 10^3/uL (0.0-0.2); ABSOLUTE EOSINOPHILS # (AUTO) 0.1 10^3/uL (0.0-0.6); ABSOLUTE LYMPHOCYTES (AUTO) 1.9 10^3/uL (0.5-4.7); ABSOLUTE MONOCYTES (AUTO) 1.2 10^3/uL (0.1-1.4); ABSOLUTE NEUT (AUTO) 9.3 10^3/uL (1.7-8.2); BASOPHILS % (AUTO) 0.7 % (0-2); EOSINOPHILS % (AUTO) 0.7 % (0-6); HEMATOCRIT 36.8 % (37.9-51.0); HEMOGLOBIN 12.6 g/dL (13.5-17.0); LYMPHOCYTES % (AUTO) 14.8 % (13-45); MEAN CORPUSCULAR HEMOGLOBIN 31.6 pg (27.0-33.4); MEAN CORPUSCULAR HGB CONC 34.3 g/dL (32.0-36.0); MEAN CORPUSCULAR VOLUME 92 fl (80-97); MONOCYTES % (AUTO) 9.8 % (3-13); PLATELET COUNT 169 10^3/uL (150-450); RED CELL DISTRIBUTION WIDTH 13.9 % (11.5-14.0); TOTAL CELLS COUNTED % (AUTO) 100 %; WHITE BLOOD COUNT 12.6 10^3/uL (4.0-10.5)
[2019-05-27] MEDS: VANCOMYCIN HCL 1,500 MG in DEXTROSE 5%-WATER 250 ML IV SCH ×2 (06:13→13:49)
[2019-05-27] MEDS: HEPARIN SOD (PORCINE) 5,000 UNIT/ML 1 ML VIAL SUBCUT SCH ×3 (06:13→23:09)
[2019-05-27] MEDS: DIAZEPAM 5 MG TABLET PO SCH ×4 (06:13→17:43)
[2019-05-27] MEDS: DIAZEPAM INJ 10 MG/2 ML DISP.SYRIN IV PRN (06:26)
[2019-05-27 06:33] LABS: ANION GAP 8 (5-19); BLOOD UREA NITROGEN 8 mg/dL (7-20); CARBON DIOXIDE 28 mmol/L (22-30); CHLORIDE 97 mmol/L (98-107); GLUCOSE 95 mg/dL (75-110); POTASSIUM 4.7 mmol/L (3.6-5.0); SODIUM 133.1 mmol/L (137-145)
--- NOTE | 2019-05-27 06:57 | PDOC PROGRESS REPORT ---
Subjective Progress Note for:: 05/27/19 Reason For Visit: RUE CELLULITIS 54-year-old white male with a past medical history significant for left hand dorsal cellulitis in the recent past who now presents with a spontaneous onset right dorsal hand cellulitis. He attributes this to moving contents of the home and being exposed to bedbugs and scabies. Physical Exam Vital Signs: Temp Pulse Resp BP Pulse Ox 36.8 C 113 H 18 145/83 H 94 05/26/19 23:49 05/26/19 23:49 05/26/19 23:49 05/26/19 23:49 05/26/19 23:49 Intake & Output 05/25/19 05/26/19 05/27/19 06:59 06:59 06:59 Intake Total 1050 1020 2060 Output Total 800 Balance 1050 1020 1260 Weight 87 kg 92.2 kg 92.2 kg Physical Exam: Moderately built middle-aged white male lying in a hospital bed in minor distress. Patient remarks that the pain is killing him. General appearance: PRESENT: no acute distress, mild distress Head exam: PRESENT: normocephalic Respiratory exam: PRESENT: unlabored Cardiovascular exam: PRESENT: RRR Vascular exam: PRESENT: normal capillary refill Extremities exam: PRESENT: other - There is cellulitis that extends from mid forearm dorsally to the PIP regions. The patient states that this is improved since last night as is the active range of motion of his fingers. Over the dorsum of the radiocarpal joint there is a single point of discoloration that may be consistent with a bug bite. There is brisk capillary refill each of the digits. Sensory examination is intact to light touch. Neurological exam: PRESENT: alert, awake, oriented to person, oriented to place, oriented to time, oriented to situation. ABSENT: motor sensory deficit Psychiatric exam: PRESENT: appropriate affect, normal mood. ABSENT: homicidal ideation, suicidal ideation Skin exam: PRESENT: dry, intact, warm. ABSENT: cyanosis, rash Results Laboratory Results: 05/27/19 06:02 05/27/19 06:02 05/26/19 05/26/19 05/26/19 06:26 06:26 11:52 WBC 11.9 H RBC 4.03 L Hgb 12.5 L Hct 37.3 L MCV 93 MCH 31.1 MCHC 33.6 RDW 13.8 Plt Count 181 Seg Neutrophils % Lymphocytes % Monocytes % Eosinophils % Basophils % Absolute Neutrophils Absolute Lymphocytes Absolute Monocytes Absolute Eosinophils Absolute Basophils Sodium 135.1 L Potassium 4.0 Chloride 99 Carbon Dioxide 27 Anion Gap 9 BUN 9 Creatinine 0.59 Est GFR ( Amer) > 60 Est GFR (Non-Af Amer) > 60 Glucose 147 H Calcium 8.6 Magnesium 1.4 L C-Reactive Protein 71.7 H 05/27/19 05/27/19 06:02 06:02 WBC 12.6 H RBC 4.00 L Hgb 12.6 L Hct 36.8 L MCV 92 MCH 31.6 MCHC 34.3 RDW 13.9 Plt Count 169 Seg Neutrophils % 74.0 Lymphocytes % 14.8 Monocytes % 9.8 Eosinophils % 0.7 Basophils % 0.7 Absolute Neutrophils 9.3 H Absolute Lymphocytes 1.9 Absolute Monocytes 1.2 Absolute Eosinophils 0.1 Absolute Basophils 0.1 Sodium 133.1 L Potassium 4.7 Chloride 97 L Carbon Dioxide 28 Anion Gap 8 BUN 8 Creatinine 0.59 Est GFR ( Amer) > 60 Est GFR (Non-Af Amer) > 60 Glucose 95 Calcium 9.0 Magnesium C-Reactive Protein Impressions: Forearm X-Ray 05/24/19 18:29 IMPRESSION: No fracture or radiopaque foreign body. Hand X-Ray 05/24/19 18:29 IMPRESSION: No acute fracture or dislocation. 5th DIP flexion deformity, chronic appearing. Upper Extremity MRI 05/26/19 00:00 IMPRESSION: NO EVIDENCE FOR OSTEOMYELITIS. Status: Imported from PACS Assessment & Plan - Diagnosis (1) Cellulitis of right upper extremity Is this a current diagnosis for this admission?: Yes Plan: 54-year-old white male admitted with a right hand cellulitis of uncertain etiology. Patient is undergone an MRI scan demonstrating some fluid about the extensor tendons but no clear abscess. There is no evidence of bone involvement. Patient reports considerable improvement overnight on IV anti biotics. Tentative plan will be to continue a course of biopsy IV antibiotics and observation. Patient had a similar condition on the contralateral extremity in the recent past which resolved with similar treatment. - Time Time Spent with patient: 15-24 minutes Anticipated discharge: Home with Homehealth Within: Other
[2019-05-27] MEDS: HYDROCODONE/ACETAMINOPHEN 5-325 MG TABLET PO PRN ×2 (08:51→15:39)
[2019-05-27] MEDS: MAGNESIUM OXIDE 400 MG TABLET PO SCH ×2 (10:04→17:43)
[2019-05-27] MEDS: DOCUSATE SODIUM 100 MG CAPSULE PO SCH ×2 (10:04→17:43)
[2019-05-27] MEDS: FAMOTIDINE 20 MG TABLET PO SCH ×2 (10:04→23:10)
[2019-05-27] MEDS ORDERED: TRAMADOL HCL 50 MG TABLET PO PRN (10:07)
--- NOTE | 2019-05-27 10:54 | PDOC PROGRESS REPORT ---
Subjective Progress Note for:: 05/27/19 Subjective:: Patient is a 54-year-old male with a past medical history of hypertension, hyperlipidemia, alcohol and tobacco dependency who was admitted 05/24/2019 for right upper extremity cellulitis. Patient was seen on morning rounds. He is found resting in bed comfortably on r oom air. He reports continued discomfort, edema, and erythema to his right forearm and hand; though reports slightly improved today. He denies fever, chills, chest pain, palpitations, dyspnea, orthopnea, abnormal pain, nausea vomiting and diarrhea. He has no other questions or concerns today. No concerns per nursing. Reason For Visit: RUE CELLULITIS Physical Exam Vital Signs: Temp Pulse Resp BP Pulse Ox 98.2 F 103 H 18 145/83 H 97 05/26/19 23:49 05/27/19 09:09 05/27/19 09:09 05/26/19 23:49 05/27/19 09:09 Intake & Output 05/26/19 05/27/19 05/28/19 06:59 06:59 06:59 Intake Total 1020 2060 350 Output Total 800 Balance 1020 1260 350 Weight 92.2 kg 92.2 kg General appearance: PRESENT: no acute distress, disheveled, obese, well-d eveloped, well-nourished Head exam: PRESENT: atraumatic, normocephalic Eye exam: PRESENT: conjunctiva pink, EOMI, PERRLA. ABSENT: scleral icterus Mouth exam: PRESENT: moist, tongue midline Teeth exam: PRESENT: poor dentation Neck exam: ABSENT: carotid bruit, JVD, lymphadenopathy, thyromegaly Respiratory exam: PRESENT: clear to auscultation ankit, symmetrical, unlabored. ABSENT: rales, rhonchi, wheezes Cardiovascular exam: PRESENT: RRR, +S1, +S2. ABSENT: diastolic murmur, rubs, systolic murmur Pulses: PRESENT: normal dorsalis pedis pul Vascular exam: PRESENT: normal capillary refill GI/Abdominal exam: PRESENT: normal bowel sounds, soft. ABSENT: distended, guarding, mass, organolmegaly, rebound, tenderness Rectal exam: PRESENT: deferred Extremities exam: PRESENT: full ROM, tenderness - RUE. ABSENT: calf tenderness, clubbing, pedal edema Neurological exam: PRESENT: alert, awake, oriented to person, oriented to place, oriented to time, oriented to situation, CN II-XII grossly intact. ABSENT: motor sensory deficit Psychiatric exam: PRESENT: appropriate affect, normal mood. ABSENT: homicidal ideation, suicidal ideation Skin exam: PRESENT: dry, erythema, warm, other - Erythema and tight edema to the posterior right hand extending circumferentially to the mid forearm. Erythema appears slightly improved. Small pustule noted to posterios wrist; patient indicates this is where Ortho attempted aspiration yesterday. ABSENT: cyanosis, rash Results Laboratory Results: 05/27/19 06:02 05/27/19 06:02 05/26/19 05/27/19 05/27/19 11:52 06:02 06:02 WBC 12.6 H RBC 4.00 L Hgb 12.6 L Hct 36.8 L MCV 92 MCH 31.6 MCHC 34.3 RDW 13.9 Plt Count 169 Seg Neutrophils % 74.0 Lymphocytes % 14.8 Monocytes % 9.8 Eosinophils % 0.7 Basophils % 0.7 Absolute Neutrophils 9.3 H Absolute Lymphocytes 1.9 Absolute Monocytes 1.2 Absolute Eosinophils 0.1 Absolute Basophils 0.1 Sodium 133.1 L Potassium 4.7 Chloride 97 L Carbon Dioxide 28 Anion Gap 8 BUN 8 Creatinine 0.59 Est GFR ( Amer) > 60 Est GFR (Non-Af Amer) > 60 Glucose 95 Calcium 9.0 C-Reactive Protein 71.7 H Impressions: Forearm X-Ray 05/24/19 18:29 IMPRESSION: No fracture or radiopaque foreign body. Hand X-Ray 05/24/19 18:29 IMPRESSION: No acute fracture or dislocation. 5th DIP flexion deformity, chronic appearing. Upper Extremity MRI 05/26/19 00:00 IMPRESSION: NO EVIDENCE FOR OSTEOMYELITIS. Assessment and Plan - Diagnosis (1) Cellulitis of right upper extremity Is this a current diagnosis for this admission?: Yes Plan: Venous Doppler ultrasound is negative for DVT/SVT Right hand and forearm x-rays benign MRI shows diffuse soft tissue swelling over the dorsum of the hand with fluid present in the extensor digitorum extensor hallucis and abductor hallucis tendon sheaths. No evidence for osteomyelitis. Blood cultures are negative at 48 hours Received IV clindamycin x24 hours; discontinue 05/26/19 Patient is admitted to the medical floor. Escalated antibiotics antibiotics to IV Zosyn and vancomycin due to clinical worsening of cellulitis yesterday; day #2. Orthopedics is consulted; appreciate their evaluation and recommendations. Analgesics as needed. Keep extremity elevated (2) Alcohol dependence Qualifiers: Substance use status: uncomplicated Qualified Code(s): F10.20 - Alcohol dependence, uncomplicated Is this a current diagnosis for this admission?: Yes Plan: Patient has a history of heavy alcohol abuse/dependence; no evidence of withdrawal at this time He is provided scheduled Valium; will decrease dose today. Continue Valium 10 mg IV as needed for anxiety/agitation/withdrawal symptoms; has required 2 doses over last 24 hours Thorazine 25 mg IV every 8 hours for severe agitation/hallucinations. Fall, seizure, aspiration precautions in place (3) Tobacco use disorder, severe, dependence Is this a current diagnosis for this admission?: Yes Plan: Tobacco use cessation is advised and counseled. A nicotine replacement patch will be available for the patient's use. (4) Hypokalemia Is this a current diagnosis for this admission?: Yes Plan: Replete. Continue to monitor with daily chemistries. (5) Hypomagnesemia Is this a current diagnosis for this admission?: Yes Plan: Replete
--- NOTE | 2019-05-27 14:29 | XCELERA REPORT ---
[address] [id number] Upper Extremity Venous Evaluation Name: JOSE MCNEAL Age: 54 yrs Gender: Male : 1965 Patient Status: Inpatient Patient Location: [address] [place], [place] [address] Study Date: 05/25/2019 07:37 PM Procedure: Unilateral duplex scan of the right upper extremity veins was performed, including responses to compression and other maneuvers. Reason For Study: RUEV PAIN SWELLING Ordering Physician: RADHA ANNE Performed By: Mariya Chapin Right Side Venous Evaluation Normal vessel filling wall to wall, compression and augmentation as well as Colour flow down to the forearm veins. Interpretation Summary Normal compression, patency, spontaneous and phasic flow of the right upper extremity veins. : RADHA ANNE Lennox
[2019-05-27 14:56] LABS: VANCOMYCIN,TROUGH 12.7 ug/mL (5.0-20.0)
[2019-05-28] MEDS: HYDROCODONE/ACETAMINOPHEN 5-325 MG TABLET PO PRN (00:06)
[2019-05-28] MEDS: VANCOMYCIN HCL 1,500 MG in DEXTROSE 5%-WATER 250 ML IV SCH ×4 (00:07→23:05)
[2019-05-28] MEDS: DIAZEPAM 5 MG TABLET PO SCH ×5 (00:07→23:05)
[2019-05-28] MEDS: PIPERACILLIN SODIUM/TAZOBACTAM 3.375 GM in NORMAL SALINE 100 ML IV SCH ×5 (03:13→22:22)
[2019-05-28 05:00] LABS: HEMATOCRIT 39.2 % (37.9-51.0); HEMOGLOBIN 13.1 g/dL (13.5-17.0); MEAN CORPUSCULAR HEMOGLOBIN 31.2 pg (27.0-33.4); MEAN CORPUSCULAR HGB CONC 33.5 g/dL (32.0-36.0); MEAN CORPUSCULAR VOLUME 93 fl (80-97); RED BLOOD COUNT 4.21 10^6/uL (4.35-5.55); RED CELL DISTRIBUTION WIDTH 13.6 % (11.5-14.0); WHITE BLOOD COUNT 12.3 10^3/uL (4.0-10.5)
[2019-05-28 05:29] LABS: PLATELET COUNT 214 10^3/uL (150-450)
[2019-05-28 05:36] LABS: ANION GAP 10 (5-19); BLOOD UREA NITROGEN 10 mg/dL (7-20); CALCIUM 8.9 mg/dL (8.4-10.2); CARBON DIOXIDE 29 mmol/L (22-30); CHLORIDE 98 mmol/L (98-107); GLUCOSE 99 mg/dL (75-110); POTASSIUM 5.1 mmol/L (3.6-5.0); SODIUM 137.4 mmol/L (137-145)
[2019-05-28] MEDS: HEPARIN SOD (PORCINE) 5,000 UNIT/ML 1 ML VIAL SUBCUT SCH ×3 (06:07→22:22)
[2019-05-28] MEDS: DOCUSATE SODIUM 100 MG CAPSULE PO SCH ×2 (09:18→18:23)
[2019-05-28] MEDS: MAGNESIUM OXIDE 400 MG TABLET PO SCH ×2 (09:18→18:23)
[2019-05-28] MEDS: HYDRALAZINE HCL INJ/PF 20 MG/1 ML SDV IV PRN (09:19)
[2019-05-28] MEDS: FAMOTIDINE 20 MG TABLET PO SCH ×2 (11:59→22:22)
--- NOTE | 2019-05-28 14:51 | PDOC PROGRESS REPORT ---
Subjective Progress Note for:: 05/28/19 Subjective:: Patient lying in bed comfortably. States the redness and swelling in his forearm has although still has discomfort along his hand. Denies numbness or tingling. Reason For Visit: RUE CELLULITIS Physical Exam Vital Signs: Temp Pulse Resp BP Pulse Ox 98.2 F 86 18 139/84 H 97 05/28/19 08:00 05/28/19 08:00 05/28/19 08:00 05/28/19 09:24 05/28/19 08:00 Intake & Output 05/27/19 05/28/19 05/29/19 06:59 06:59 06:59 Intake Total 2060 2730 770 Output Total 800 750 Balance 1260 1980 770 Weight 92.2 kg 92.2 kg Musculoskeletal exam: PRESENT: other - Right hand: Swelling and erythema along the dorsum of the hand with serosanguineous drainage. No tenderness volarly on the palm or thenar eminence. No tenderness on the flexor sheath. MP joint range of motion 0 degrees - 60 degrees IP joint range of motion 0 degrees - 50 degrees. Lymphangitis/erythema along the form has notably improved. Compartments soft and compressible throughout the hand and forearm no sign of compartment syndrome. Cap refill less than 2 seconds. Normal skin turgor Results Laboratory Results: 05/28/19 04:15 05/28/19 04:15 05/28/19 05/28/19 04:15 04:15 WBC 12.3 H RBC 4.21 L Hgb 13.1 L Hct 39.2 MCV 93 MCH 31.2 MCHC 33.5 RDW 13.6 Plt Count 214 Sodium 137.4 Potassium 5.1 H Chloride 98 Carbon Dioxide 29 Anion Gap 10 BUN 10 Creatinine 0.76 Est GFR ( Amer) > 60 Est GFR (Non-Af Amer) > 60 Glucose 99 Calcium 8.9 Impressions: Forearm X-Ray 05/24/19 18:29 IMPRESSION: No fracture or radiopaque foreign body. Hand X-Ray 05/24/19 18:29 IMPRESSION: No acute fracture or dislocation. 5th DIP flexion deformity, chronic appearing. Upper Extremity MRI 05/26/19 00:00 IMPRESSION: NO EVIDENCE FOR OSTEOMYELITIS. Assessment & Plan - Diagnosis (1) Cellulitis of right wrist Is this a current diagnosis for this admission?: Yes Plan: Patient MRI once again has been reviewed demonstrating synovitis along the dorsal extensor tendons do not develop flexor tenosynovitis as does the flexor tendon and currently there is no drainable abscess or fluid collection to warrant operative intervention. At this point would continue conservative treatment with IV antibiotics he is slowly showing some improvement up to this juncture.
[2019-05-28] MEDS: KETOROLAC TROMETHAMINE INJ/PF 30 MG/1 ML SDV IV PRN (16:14)
--- NOTE | 2019-05-28 18:31 | PDOC PROGRESS REPORT ---
Subjective Progress Note for:: 05/28/19 Subjective:: Patient is a 54-year-old male with a past medical history of hypertension, hyperlipidemia, alcohol and tobacco dependency who was admitted 05/24/2019 for right upper extremity cellulitis. Patient was seen on morning rounds. He is found resting in bed comfortably on r oom air. He reports continued discomfort, edema, and erythema to his right hand; although forearm is significantly improved. He denies fever, chills, chest pain, palpitations, dyspnea, orthopnea, abnormal pain, nausea vomiting and diarrhea. He has no other questions or concerns today. No concerns per nursing. Reason For Visit: RUE CELLULITIS Physical Exam Vital Signs: Temp Pulse Resp BP Pulse Ox 97.6 F 102 H 22 H 151/96 H 98 05/28/19 16:00 05/28/19 16:00 05/28/19 16:00 05/28/19 16:00 05/28/19 16:00 Intake & Output 05/27/19 05/28/19 05/29/19 06:59 06:59 06:59 Intake Total 2060 2730 770 Output Total 800 750 Balance 1260 1980 770 Weight 92.2 kg 92.2 kg General appearance: PRESENT: no acute distress, disheveled, obese, well-develop ed, well-nourished Head exam: PRESENT: atraumatic, normocephalic Eye exam: PRESENT: conjunctiva pink, EOMI, PERRLA. ABSENT: scleral icterus Mouth exam: PRESENT: moist, tongue midline Teeth exam: PRESENT: poor dentation Neck exam: ABSENT: carotid bruit, JVD, lymphadenopathy, thyromegaly Respiratory exam: PRESENT: clear to auscultation ankit, symmetrical, unlabored. ABSENT: rales, rhonchi, wheezes Cardiovascular exam: PRESENT: RRR, +S1, +S2. ABSENT: diastolic murmur, rubs, systolic murmur Pulses: PRESENT: normal dorsalis pedis pul Vascular exam: PRESENT: normal capillary refill GI/Abdominal exam: PRESENT: normal bowel sounds, soft. ABSENT: distended, guarding, mass, organolmegaly, rebound, tenderness Rectal exam: PRESENT: deferred Extremities exam: PRESENT: full ROM, tenderness - Rt hand. ABSENT: calf tenderness, clubbing, pedal edema Neurological exam: PRESENT: alert, awake, oriented to person, oriented to place, oriented to time, oriented to situation, CN II-XII grossly intact. ABSENT: motor sensory deficit Psychiatric exam: PRESENT: appropriate affect, normal mood. ABSENT: homicidal ideation, suicidal ideation Skin exam: PRESENT: dry, erythema, warm, other - Erythema and tight edema to the posterior right hand. Serous drainage from posterior wrist. Edema and erythema to forearm significantly improved. Increased range of motion to wrist and fingers.. ABSENT: cyanosis, rash Results Laboratory Results: 05/28/19 04:15 05/28/19 04:15 05/28/19 05/28/19 04:15 04:15 WBC 12.3 H RBC 4.21 L Hgb 13.1 L Hct 39.2 MCV 93 MCH 31.2 MCHC 33.5 RDW 13.6 Plt Count 214 Sodium 137.4 Potassium 5.1 H Chloride 98 Carbon Dioxide 29 Anion Gap 10 BUN 10 Creatinine 0.76 Est GFR ( Amer) > 60 Est GFR (Non-Af Amer) > 60 Glucose 99 Calcium 8.9 Impressions: Forearm X-Ray 05/24/19 18:29 IMPRESSION: No fracture or radiopaque foreign body. Hand X-Ray 05/24/19 18:29 IMPRESSION: No acute fracture or dislocation. 5th DIP flexion deformity, chronic appearing. Upper Extremity MRI 05/26/19 00:00 IMPRESSION: NO EVIDENCE FOR OSTEOMYELITIS. Assessment and Plan - Diagnosis (1) Cellulitis of right upper extremity Is this a current diagnosis for this admission?: Yes Plan: Improved appearance today; decreased erythema and edema to forearm. Venous Doppler ultrasound is negative for DVT/SVT Right hand and forearm x-rays benign MRI shows diffuse soft tissue swelling over the dorsum of the hand with fluid present in the extensor digitorum extensor hallucis and abductor hallucis tendon sheaths. No evidence for osteomyelitis. Blood cultures are negative at 72 hours Received IV clindamycin x24 hours; discontinue 05/26/19 Patient is admitted to the medical floor. Continue IV Zosyn and vancomycin; day #3 Orthopedics is consulted; appreciate their evaluation and recommendations. Analgesics as needed. Keep extremity elevated (2) Alcohol dependence Qualifiers: Substance use status: uncomplicated Qualified Code(s): F10.20 - Alcohol dependence, uncomplicated Is this a current diagnosis for this admission?: Yes Plan: Patient has a history of heavy alcohol abuse/dependence; no evidence of withdrawal at this time He is provided scheduled Valium; will plan to decrease dose again tomorrow. Continue Valium 10 mg IV as needed for anxiety/agitation/withdrawal symptoms; has required 1 doses over last 24 hours Thorazine 25 mg IV every 8 hours for severe agitation/hallucinations. Fall, seizure, aspiration precautions in place (3) Tobacco use disorder, severe, dependence Is this a current diagnosis for this admission?: Yes Plan: Tobacco use cessation is advised and counseled. A nicotine replacement patch will be available for the patient's use. (4) Hypokalemia Is this a current diagnosis for this admission?: Yes Plan: Resolved Continue to monitor with daily chemistries. (5) Hypomagnesemia Is this a current diagnosis for this admission?: Yes Plan: Replete (6) Hypertension Is this a current diagnosis for this admission?: Yes Plan: Start losartan. IV Lopressor or hydralazine as needed for blood pressure control. Management of alcohol dependence as above. Analgesics as needed for acute pain. - Time Time Spent with patient: 15-24 minutes Medications reviewed and adjusted accordingly: Yes Anticipated discharge: Home Within: within 72 hours
[2019-05-28] MEDS: LOSARTAN POTASSIUM 25 MG TABLET PO SCH (22:22)
[2019-05-29] MEDS: HYDROCODONE/ACETAMINOPHEN 5-325 MG TABLET PO PRN ×3 (04:05→23:50)
[2019-05-29] MEDS: KETOROLAC TROMETHAMINE INJ/PF 30 MG/1 ML SDV IV PRN ×2 (04:05→18:42)
[2019-05-29] MEDS: PIPERACILLIN SODIUM/TAZOBACTAM 3.375 GM in NORMAL SALINE 100 ML IV SCH ×4 (04:06→21:53)
[2019-05-29] MEDS: DIAZEPAM 5 MG TABLET PO SCH ×2 (06:51→12:31)
[2019-05-29] MEDS: HEPARIN SOD (PORCINE) 5,000 UNIT/ML 1 ML VIAL SUBCUT SCH ×3 (06:51→21:53)
[2019-05-29] MEDS: VANCOMYCIN HCL 1,500 MG in DEXTROSE 5%-WATER 250 ML IV SCH ×3 (06:51→23:50)
--- NOTE | 2019-05-29 07:32 | PDOC PROGRESS REPORT ---
Subjective Progress Note for:: 05/29/19 Reason For Visit: RUE CELLULITIS 54-year-old white male with a right dorsal hand cellulitis being treated nonoperatively with IV antibiotic therapy. Patient reports subjective impr ovement since yesterday. Physical Exam Vital Signs: Temp Pulse Resp BP Pulse Ox 36.7 C 98 18 162/86 H 100 05/28/19 23:15 05/28/19 23:15 05/28/19 23:15 05/28/19 23:15 05/28/19 23:15 Intake & Output 05/28/19 05/29/19 05/30/19 06:59 06:59 06:59 Intake Total 2730 3740 Output Total 750 Balance 1980 3740 Weight 92.2 kg 92.3 kg Physical Exam: Middle-aged white male sleeping comfortably in bed. He is awoken. He is alert, oriented, and appropriate. General appearance: PRESENT: no acute distress, mild distress Head exam: PRESENT: normocephalic Respiratory exam: PRESENT: unlabored Cardiovascular exam: PRESENT: RRR Pulses: PRESENT: normal radial pulses Vascular exam: PRESENT: normal capillary refill GI/Abdominal exam: PRESENT: soft Rectal exam: PRESENT: deferred Extremities exam: PRESENT: other - Well the erythema and tenderness have retreated from proximal to distal there seems to be increasing erythema and induration over the dorsum of the thenar compartment. Likewise a small area of skin breakdown over the dorsal radiocarpal joint seems to have increased. There is no drainage at this point. Distal neurovascular examination is intact. Neurological exam: PRESENT: alert, awake, oriented to person, oriented to place, oriented to time, oriented to situation. ABSENT: motor sensory deficit Psychiatric exam: PRESENT: appropriate affect, normal mood. ABSENT: homicidal ideation, suicidal ideation Skin exam: PRESENT: dry, intact, warm. ABSENT: cyanosis, rash Results Laboratory Results: 05/28/19 04:15 05/28/19 04:15 Impressions: Forearm X-Ray 05/24/19 18:29 IMPRESSION: No fracture or radiopaque foreign body. Hand X-Ray 05/24/19 18:29 IMPRESSION: No acute fracture or dislocation. 5th DIP flexion deformity, chronic appearing. Upper Extremity MRI 05/26/19 00:00 IMPRESSION: NO EVIDENCE FOR OSTEOMYELITIS. Status: Imported from PACS Assessment & Plan - Diagnosis (1) Cellulitis of right upper extremity Is this a current diagnosis for this admission?: Yes Plan: The patient has had a previous MRI scan demonstrating fluid around the extensor tendons but no abscess formation. On the basis of clinical examination today am somewhat concerned that there is an abscess forming over the dorsum of the thenar compartment. I have taken the liberty of repeating his MRI scan as well as his laboratory studies to further evaluate this. - Time Time Spent with patient: 15-24 minutes Anticipated discharge: Other Within: Other
[2019-05-29] MEDS: DOCUSATE SODIUM 100 MG CAPSULE PO SCH ×2 (09:10→16:47)
[2019-05-29] MEDS: LOSARTAN POTASSIUM 25 MG TABLET PO SCH (09:10)
[2019-05-29] MEDS: MAGNESIUM OXIDE 400 MG TABLET PO SCH ×2 (09:10→16:47)
[2019-05-29] MEDS: FAMOTIDINE 20 MG TABLET PO SCH ×2 (09:10→21:54)
[2019-05-29 10:19] LABS: HEMATOCRIT 39.7 % (37.9-51.0); HEMOGLOBIN 13.5 g/dL (13.5-17.0); MEAN CORPUSCULAR HEMOGLOBIN 31.7 pg (27.0-33.4); MEAN CORPUSCULAR VOLUME 93 fl (80-97); PLATELET COUNT 244 10^3/uL (150-450); RED BLOOD COUNT 4.27 10^6/uL (4.35-5.55); RED CELL DISTRIBUTION WIDTH 14.2 % (11.5-14.0); WHITE BLOOD COUNT 10.9 10^3/uL (4.0-10.5)
[2019-05-29 10:36] LABS: ANION GAP 8 (5-19); BLOOD UREA NITROGEN 12 mg/dL (7-20); C-REACTIVE PROTEIN 36.7 mg/L (<10.0); CARBON DIOXIDE 26 mmol/L (22-30); CHLORIDE 102 mmol/L (98-107); GLUCOSE 127 mg/dL (75-110); POTASSIUM 4.7 mmol/L (3.6-5.0); SODIUM 135.8 mmol/L (137-145)
--- NOTE | 2019-05-29 13:15 | PDOC PROGRESS REPORT ---
Subjective Progress Note for:: 05/29/19 Subjective:: Patient is a 54-year-old male with a past medical history of hypertension, hyperlipidemia, alcohol and tobacco dependency who was admitted 05/24/2019 for right upper extremity cellulitis. Patient was seen on morning rounds. He is found resting in bed comfortably on r oom air. He reports continued discomfort, edema, and erythema to his right hand and wrist only. He denies fever, chills, chest pain, palpitations, dyspnea, orthopnea, abnormal pain, nausea vomiting and diarrhea. He has no other questions or concerns today. No concerns per nursing. Reason For Visit: RUE CELLULITIS Physical Exam Vital Signs: Temp Pulse Resp BP Pulse Ox 98.0 F 90 19 142/92 H 99 05/29/19 11:36 05/29/19 11:36 05/29/19 11:36 05/29/19 11:36 05/29/19 11:36 Intake & Output 05/28/19 05/29/19 05/30/19 06:59 06:59 06:59 Intake Total 2730 3740 350 Output Total 750 Balance 1980 3740 350 Weight 92.2 kg 92.3 kg General appearance: PRESENT: no acute distress, obese, well-developed, well- nourished Head exam: PRESENT: atraumatic, normocephalic Eye exam: PRESENT: conjunctiva pink, EOMI, PERRLA. ABSENT: scleral icterus Mouth exam: PRESENT: moist, tongue midline Neck exam: ABSENT: carotid bruit, JVD, lymphadenopathy, thyromegaly Respiratory exam: PRESENT: clear to auscultation ankit, symmetrical, unlabored. ABSENT: rales, rhonchi, wheezes Cardiovascular exam: PRESENT: RRR. ABSENT: diastolic murmur, rubs, systolic murmur Pulses: PRESENT: normal dorsalis pedis pul Vascular exam: PRESENT: normal capillary refill GI/Abdominal exam: PRESENT: normal bowel sounds, soft. ABSENT: distended, guarding, mass, organolmegaly, rebound, tenderness Rectal exam: PRESENT: deferred Extremities exam: PRESENT: full ROM. ABSENT: calf tenderness, clubbing, pedal edema Musculoskeletal exam: PRESENT: tenderness - Rt hand Neurological exam: PRESENT: alert, awake, oriented to person, oriented to place, oriented to time, oriented to situation, CN II-XII grossly intact. ABSENT: motor sensory deficit Psychiatric exam: PRESENT: appropriate affect, normal mood. ABSENT: homicidal ideation, suicidal ideation Skin exam: PRESENT: dry, warm, other - Intense erythema to posterior right hand and wrist. Edema to hand. Pustulant drainage from posterior wrist with possible abscess formation.. ABSENT: cyanosis, rash Results Laboratory Results: 05/29/19 09:20 05/29/19 09:20 05/29/19 05/29/19 09:20 09:20 WBC 10.9 H RBC 4.27 L Hgb 13.5 Hct 39.7 MCV 93 MCH 31.7 MCHC 34.0 RDW 14.2 H Plt Count 244 Sodium 135.8 L Potassium 4.7 Chloride 102 Carbon Dioxide 26 Anion Gap 8 BUN 12 Creatinine 0.58 Est GFR ( Amer) > 60 Est GFR (Non-Af Amer) > 60 Glucose 127 H Calcium 9.0 C-Reactive Protein 36.7 H Impressions: Forearm X-Ray 05/24/19 18:29 IMPRESSION: No fracture or radiopaque foreign body. Hand X-Ray 05/24/19 18:29 IMPRESSION: No acute fracture or dislocation. 5th DIP flexion deformity, chronic appearing. Assessment and Plan - Diagnosis (1) Cellulitis of right upper extremity Is this a current diagnosis for this admission?: Yes Plan: Evolving; erythema and edema to forearm has resolved. Intense erythema to hand w/ persistent edema. Now with pustulant drainage from the posterior wrist and questionable abscess formation. Venous Doppler ultrasound is negative for DVT/SVT Right hand and forearm x-rays benign MRI shows diffuse soft tissue swelling over the dorsum of the hand with fluid present in the extensor digitorum extensor hallucis and abductor hallucis tendon sheaths. No evidence for osteomyelitis. Blood cultures are negative at 4 days Received IV clindamycin x24 hours; discontinue 05/26/19 Sed rate up, CRP trending down. Patient is admitted to the medical floor. Continue IV Zosyn and vancomycin; day #4 Orthopedics is consulted; appreciate their evaluation and recommendations. Repeat MRI ordered for today. Analgesics as needed. Keep extremity elevated (2) Alcohol dependence Qualifiers: Substance use status: uncomplicated Qualified Code(s): F10.20 - Alcohol dependence, uncomplicated Is this a current diagnosis for this admission?: Yes Plan: Patient has a history of heavy alcohol abuse/dependence; no evidence of withdrawal at this time He is provided scheduled Valium; will decrease dose again today.. Continue Valium 10 mg IV as needed for anxiety/agitation/withdrawal symptoms; has not required dosing x24 hours. Thorazine 25 mg IV every 8 hours for severe agitation/hallucinations. Fall, seizure, aspiration precautions in place (3) Tobacco use disorder, severe, dependence Is this a current diagnosis for this admission?: Yes Plan: Tobacco use cessation is advised and counseled. A nicotine replacement patch will be available for the patient's use. (4) Hypokalemia Is this a current diagnosis for this admission?: Yes Plan: Resolved Continue to monitor with daily chemistries. (5) Hypomagnesemia Is this a current diagnosis for this admission?: Yes Plan: Replete (6) Hypertension Is this a current diagnosis for this admission?: Yes Plan: Slight improvement today. Continue losartan. IV Lopressor or hydralazine as needed for blood pressure control. Management of alcohol dependence as above. Analgesics as needed for acute pain.
[2019-05-29] MEDS: DIAZEPAM 2 MG TABLET PO SCH ×2 (17:48→23:50)
--- NOTE | 2019-05-29 20:14 | RADIOLOGY REPORT (SQ) ---
MR UPPER EXTREMITY WITHOUT IV CONTRAST HISTORY: Right hand cellulitis. COMPARISON: None. TECHNIQUE: Multiplanar, multisequence MR imaging of the right hand was performed without the administration of intravenous gadolinium. FINDINGS: There is diffuse subcutaneous edema and skin thickening overlying the dorsum of the right hand. No focal fluid collection is identified. There is tenosynovitis of the first and second compartments of the extensor tendons. No full-thickness tear is identified. There is also tendinosis of multiple flexor tendons at the level of the carpal tunnel. However, no mass is seen in the carpal tunnel. No acute fracture or bone marrow contusion. Mild degenerative changes throughout the carpus. Negative ulnar variance. No joint effusion. IMPRESSION: 1. Diffuse swelling of the dorsum of the right hand without fluid collection or osteomyelitis. 2. Tenosynovitis of the first and second extensor compartments.
[2019-05-30] MEDS: PIPERACILLIN SODIUM/TAZOBACTAM 3.375 GM in NORMAL SALINE 100 ML IV SCH ×4 (03:09→20:06)
[2019-05-30] MEDS: HEPARIN SOD (PORCINE) 5,000 UNIT/ML 1 ML VIAL SUBCUT SCH ×3 (05:32→22:06)
[2019-05-30] MEDS: VANCOMYCIN HCL 1,500 MG in DEXTROSE 5%-WATER 250 ML IV SCH ×3 (05:32→22:06)
[2019-05-30] MEDS: DIAZEPAM 2 MG TABLET PO SCH ×3 (05:32→17:08)
[2019-05-30 06:32] LABS: HEMATOCRIT 36.5 % (37.9-51.0); HEMOGLOBIN 12.3 g/dL (13.5-17.0); MEAN CORPUSCULAR HEMOGLOBIN 31.3 pg (27.0-33.4); MEAN CORPUSCULAR HGB CONC 33.6 g/dL (32.0-36.0); MEAN CORPUSCULAR VOLUME 93 fl (80-97); PLATELET COUNT 249 10^3/uL (150-450); RED BLOOD COUNT 3.92 10^6/uL (4.35-5.55); RED CELL DISTRIBUTION WIDTH 13.7 % (11.5-14.0); WHITE BLOOD COUNT 10.8 10^3/uL (4.0-10.5)
[2019-05-30] MEDS: HYDROCODONE/ACETAMINOPHEN 5-325 MG TABLET PO PRN ×2 (07:55→15:59)
[2019-05-30] MEDS: LOSARTAN POTASSIUM 25 MG TABLET PO SCH ×2 (09:37→22:06)
[2019-05-30] MEDS: DOCUSATE SODIUM 100 MG CAPSULE PO SCH ×2 (09:37→17:08)
[2019-05-30] MEDS: MAGNESIUM OXIDE 400 MG TABLET PO SCH ×2 (09:37→17:08)
[2019-05-30] MEDS: FAMOTIDINE 20 MG TABLET PO SCH ×2 (09:37→22:06)
[2019-05-30] MEDS: HYDRALAZINE HCL INJ/PF 20 MG/1 ML SDV IV PRN ×2 (12:08→18:35)
[2019-05-30] MEDS ORDERED: LORAZEPAM 1 MG TABLET PO PRN (15:29)
--- NOTE | 2019-05-30 15:32 | PDOC PROGRESS REPORT ---
Subjective Progress Note for:: 05/30/19 Subjective:: Patient is a 54-year-old male with a past medical history of hypertension, hyperlipidemia, alcohol and tobacco dependency who was admitted 05/24/2019 for right upper extremity cellulitis. Patient was seen on morning rounds with significant other present. He is found resting in bed comfortably on room air. He reports he is feeling much better today. Significant decrease to erythema and edema of hand. He denies fever, chills, chest pain, palpitations, dyspnea, orthopnea, abnormal pain, nausea vomiting and diarrhea. He has no other questions or concerns today. No concerns per nursing. Reason For Visit: RUE CELLULITIS Physical Exam Vital Signs: Temp Pulse Resp BP Pulse Ox 97.8 F 90 18 152/106 H 100 05/30/19 11:54 05/30/19 11:57 05/30/19 11:54 05/30/19 11:57 05/30/19 11:54 Intake & Output 05/29/19 05/30/19 05/31/19 06:59 06:59 06:59 Intake Total 3740 3130 1170 Balance 3740 3130 1170 Weight 92.3 kg 92.3 kg General appearance: PRESENT: no acute distress, cooperative, obese, well- developed, well-nourished Head exam: PRESENT: atraumatic, normocephalic Eye exam: PRESENT: conjunctiva pink, EOMI, PERRLA. ABSENT: scleral icterus Ear exam: PRESENT: normal external ear exam Mouth exam: PRESENT: moist, tongue midline Neck exam: ABSENT: carotid bruit, JVD, lymphadenopathy, thyromegaly Respiratory exam: PRESENT: clear to auscultation ankit, symmetrical, unlabored. ABSENT: rales, rhonchi, wheezes Cardiovascular exam: PRESENT: RRR, +S1, +S2. ABSENT: diastolic murmur, rubs, systolic murmur Pulses: PRESENT: normal dorsalis pedis pul Vascular exam: PRESENT: normal capillary refill GI/Abdominal exam: PRESENT: normal bowel sounds, soft. ABSENT: distended, guarding, mass, organolmegaly, rebound, tenderness Rectal exam: PRESENT: deferred Extremities exam: PRESENT: full ROM. ABSENT: calf tenderness, clubbing, pedal edema Musculoskeletal exam: PRESENT: tenderness - Right hand Neurological exam: PRESENT: alert, awake, oriented to person, oriented to place, oriented to time, oriented to situation, CN II-XII grossly intact. ABSENT: motor sensory deficit Psychiatric exam: PRESENT: appropriate affect, normal mood. ABSENT: homicidal ideation, suicidal ideation Skin exam: PRESENT: dry, erythema, warm, other - Erythema and edema to posterior right hand; serous drainage from posterior wrist. Overall decreased significantly from yesterday. Decreased range of motion to wrist and fingers today.. ABSENT: cyanosis, intact, rash Results Laboratory Results: 05/30/19 05:32 05/29/19 09:20 05/30/19 05:32 WBC 10.8 H RBC 3.92 L Hgb 12.3 L Hct 36.5 L MCV 93 MCH 31.3 MCHC 33.6 RDW 13.7 Plt Count 249 05/24/19 21:30 Blood Blood Culture - Final NO GROWTH IN 5 DAYS 05/24/19 19:35 Blood Blood Culture - Final NO GROWTH IN 5 DAYS Impressions: Forearm X-Ray 05/24/19 18:29 IMPRESSION: No fracture or radiopaque foreign body. Hand X-Ray 05/24/19 18:29 IMPRESSION: No acute fracture or dislocation. 5th DIP flexion deformity, chronic appearing. Upper Extremity MRI 05/29/19 08:32 IMPRESSION: 1. Diffuse swelling of the dorsum of the right hand without fluid collection or osteomyelitis. 2. Tenosynovitis of the first and second extensor compartments. Assessment and Plan - Diagnosis (1) Cellulitis of right upper extremity Is this a current diagnosis for this admission?: Yes Plan: Evolving; erythema and edema to forearm has resolved. Intense erythema to hand w/ persistent edema. Now with pustulant drainage from the posterior wrist and questionable abscess formation. Venous Doppler ultrasound is negative for DVT/SVT Right hand and forearm x-rays benign MRI shows diffuse soft tissue swelling over the dorsum of the hand with fluid present in the extensor digitorum extensor hallucis and abductor hallucis tendon sheaths. No evidence for osteomyelitis. Repeat MRI (05/30/2019) negative for abscess formation. Blood cultures are negative Received IV clindamycin x24 hours; discontinue 05/26/19 Sed rate up, CRP trending down. Patient is admitted to the medical floor. Continue IV Zosyn and vancomycin; day #5 anticipate transition to p.o. antibiotics tomorrow. Orthopedics is consulted; appreciate their evaluation and recommendations. Analgesics as needed. Keep extremity elevated (2) Alcohol dependence Qualifiers: Substance use status: uncomplicated Qualified Code(s): F10.20 - Alcohol dependence, uncomplicated Is this a current diagnosis for this admission?: Yes Plan: Patient has a history of heavy alcohol abuse/dependence; no evidence of withdrawal at this time We will discontinue scheduled Valium. Discontinue IV Valium, p.o. Ativan available as needed for symptoms. Fall, seizure, aspiration precautions in place Folic Acid and thiamine supplementation. (3) Tobacco use disorder, severe, dependence Is this a current diagnosis for this admission?: Yes Plan: Tobacco use cessation is advised and counseled. A nicotine replacement patch will be available for the patient's use. (4) Hypokalemia Is this a current diagnosis for this admission?: Yes Plan: Resolved Continue to monitor with daily chemistries. (5) Hypomagnesemia Is this a current diagnosis for this admission?: Yes Plan: Replete (6) Hypertension Is this a current diagnosis for this admission?: Yes Plan: Slight improvement today. Increase losartan to twice daily. IV Lopressor or hydralazine as needed for blood pressure control. Management of alcohol dependence as above. Analgesics as needed for acute pain. - Time Time Spent with patient: 15-24 minutes Medications reviewed and adjusted accordingly: Yes Anticipated discharge: Home Within: within 48 hours
[2019-05-30] MEDS ORDERED: FOLIC ACID 1 MG TABLET PO ONE (16:00)
[2019-05-30] MEDS: KETOROLAC TROMETHAMINE INJ/PF 30 MG/1 ML SDV IV PRN (18:29)
[2019-05-31] MEDS: PIPERACILLIN SODIUM/TAZOBACTAM 3.375 GM in NORMAL SALINE 100 ML IV SCH ×4 (03:48→20:11)
[2019-05-31] MEDS: KETOROLAC TROMETHAMINE INJ/PF 30 MG/1 ML SDV IV PRN (04:55)
[2019-05-31] MEDS: HEPARIN SOD (PORCINE) 5,000 UNIT/ML 1 ML VIAL SUBCUT SCH ×3 (05:00→22:04)
[2019-05-31 05:01] LABS: HEMOGLOBIN 13.4 g/dL (13.5-17.0); MEAN CORPUSCULAR HEMOGLOBIN 31.6 pg (27.0-33.4); MEAN CORPUSCULAR HGB CONC 34.2 g/dL (32.0-36.0); MEAN CORPUSCULAR VOLUME 92 fl (80-97); PLATELET COUNT 242 10^3/uL (150-450); RED BLOOD COUNT 4.24 10^6/uL (4.35-5.55); WHITE BLOOD COUNT 10.2 10^3/uL (4.0-10.5)
[2019-05-31] MEDS: VANCOMYCIN HCL 1,500 MG in DEXTROSE 5%-WATER 250 ML IV SCH ×3 (05:37→22:04)
--- NOTE | 2019-05-31 08:29 | PDOC PROGRESS REPORT ---
Subjective Progress Note for:: 05/31/19 Reason For Visit: RUE CELLULITIS Right dorsal hand cellulitis Physical Exam Vital Signs: Temp Pulse Resp BP Pulse Ox 36.7 C 89 18 148/88 H 98 05/31/19 00:27 05/31/19 00:27 05/31/19 00:27 05/31/19 00:27 05/31/19 00:27 Intake & Output 05/30/19 05/31/19 06/01/19 06:59 06:59 06:59 Intake Total 3130 2290 Output Total 1200 Balance 3130 1090 Weight 92.3 kg Physical Exam: Middle-aged white male lying comfortably in bed. Patient is able to demonstrate increasing dexterity of the digits of the right hand. General appearance: PRESENT: no acute distress, mild distress Head exam: PRESENT: normocephalic Respiratory exam: PRESENT: unlabored Cardiovascular exam: PRESENT: RRR Vascular exam: PRESENT: normal capillary refill Extremities exam: PRESENT: other - The erythema and induration over the radial aspect of the dorsal hand is decreasing as is the tenderness. There is a scant amount of drainage from the dorsal puncture wound. Neurological exam: PRESENT: alert, awake, oriented to person, oriented to place, oriented to time, oriented to situation. ABSENT: motor sensory deficit Psychiatric exam: PRESENT: appropriate affect, normal mood. ABSENT: homicidal ideation, suicidal ideation Skin exam: PRESENT: dry, intact, warm. ABSENT: cyanosis, rash Results Laboratory Results: 05/31/19 04:49 05/29/19 09:20 05/31/19 04:49 WBC 10.2 RBC 4.24 L Hgb 13.4 L Hct 39.0 MCV 92 MCH 31.6 MCHC 34.2 RDW 14.0 Plt Count 242 Impressions: Forearm X-Ray 05/24/19 18:29 IMPRESSION: No fracture or radiopaque foreign body. Hand X-Ray 05/24/19 18:29 IMPRESSION: No acute fracture or dislocation. 5th DIP flexion deformity, chronic appearing. Upper Extremity MRI 05/29/19 08:32 IMPRESSION: 1. Diffuse swelling of the dorsum of the right hand without fluid collection or osteomyelitis. 2. Tenosynovitis of the first and second extensor compartments. Status: Imported from PACS Assessment & Plan - Diagnosis (1) Cellulitis of right upper extremity Is this a current diagnosis for this admission?: Yes Plan: Continued clinical improvement. Anticipate discharge home tomorrow on oral antibiotics. - Time Time Spent with patient: 15-24 minutes Within: within 24 hours
[2019-05-31] MEDS: LOSARTAN POTASSIUM 25 MG TABLET PO SCH ×2 (09:29→22:04)
[2019-05-31] MEDS: DOCUSATE SODIUM 100 MG CAPSULE PO SCH ×2 (09:29→17:18)
[2019-05-31] MEDS: MAGNESIUM OXIDE 400 MG TABLET PO SCH ×2 (09:29→17:18)
[2019-05-31] MEDS: FAMOTIDINE 20 MG TABLET PO SCH ×2 (09:29→22:04)
[2019-05-31] MEDS: THIAMINE HCL 100 MG TABLET PO SCH (09:29)
[2019-05-31] MEDS: HYDROCODONE/ACETAMINOPHEN 5-325 MG TABLET PO PRN ×3 (09:30→22:12)
--- NOTE | 2019-05-31 10:34 | PDOC PROGRESS REPORT ---
Subjective Progress Note for:: 05/31/19 Subjective:: Patient is a 54-year-old male with a past medical history of hypertension, hyperlipidemia, alcohol and tobacco dependency who was admitted 05/24/2019 for right upper extremity cellulitis. Patient is seen resting in bed. He is awake, alert, oriented x3. He denies ishmael st pain, shortness of breath or dyspnea at rest. He states his right hand is still painful but improving. He denies any fevers or chills overnight. He denies any other arthralgias or myalgias. He denies any nausea, vomiting or abdominal pain. He denies any diarrhea or dysuria. Remaining review of systems are negative. Reason For Visit: RUE CELLULITIS Physical Exam Vital Signs: Temp Pulse Resp BP Pulse Ox 98.4 F 90 17 161/95 H 99 05/31/19 08:34 05/31/19 08:34 05/31/19 08:34 05/31/19 08:34 05/31/19 08:34 Intake & Output 05/30/19 05/31/19 06/01/19 06:59 06:59 06:59 Intake Total 3130 2290 250 Output Total 1200 Balance 3130 1090 250 Weight 92.3 kg General appearance: PRESENT: no acute distress, well-developed, well-nourished Head exam: PRESENT: atraumatic, normocephalic Eye exam: PRESENT: conjunctiva pink, EOMI, PERRLA. ABSENT: scleral icterus Ear exam: PRESENT: normal external ear exam Mouth exam: PRESENT: moist, tongue midline Neck exam: ABSENT: carotid bruit, JVD, lymphadenopathy, thyromegaly Respiratory exam: PRESENT: clear to auscultation ankit. ABSENT: rales, rhonchi, wheezes Cardiovascular exam: PRESENT: RRR. ABSENT: diastolic murmur, rubs, systolic murmur Pulses: PRESENT: normal dorsalis pedis pul Vascular exam: PRESENT: normal capillary refill GI/Abdominal exam: PRESENT: normal bowel sounds, soft. ABSENT: distended, guarding, mass, organolmegaly, rebound, tenderness Rectal exam: PRESENT: deferred Extremities exam: PRESENT: full ROM, tenderness, +1 edema - Dorsum of right hand and proximal wrist. ABSENT: calf tenderness, clubbing, pedal edema Neurological exam: PRESENT: alert, awake, oriented to person, oriented to place, oriented to time, oriented to situation, CN II-XII grossly intact. ABSENT: motor sensory deficit Psychiatric exam: PRESENT: appropriate affect, normal mood. ABSENT: homicidal ideation, suicidal ideation Skin exam: PRESENT: dry, intact, warm. ABSENT: cyanosis, rash Results Laboratory Results: 05/31/19 04:49 05/29/19 09:20 05/31/19 04:49 WBC 10.2 RBC 4.24 L Hgb 13.4 L Hct 39.0 MCV 92 MCH 31.6 MCHC 34.2 RDW 14.0 Plt Count 242 Impressions: Forearm X-Ray 05/24/19 18:29 IMPRESSION: No fracture or radiopaque foreign body. Hand X-Ray 05/24/19 18:29 IMPRESSION: No acute fracture or dislocation. 5th DIP flexion deformity, chronic appearing. Upper Extremity MRI 05/29/19 08:32 IMPRESSION: 1. Diffuse swelling of the dorsum of the right hand without fluid collection or osteomyelitis. 2. Tenosynovitis of the first and second extensor compartments. Assessment and Plan - Diagnosis (1) Cellulitis of right upper extremity Is this a current diagnosis for this admission?: Yes Plan: Evolving; erythema and edema to forearm has resolved. Intense erythema to hand w/ persistent edema. Now with pustulant drainage from the posterior wrist and questionable abscess formation. Venous Doppler ultrasound is negative for DVT/SVT Right hand and forearm x-rays benign MRI shows diffuse soft tissue swelling over the dorsum of the hand with fluid present in the extensor digitorum extensor hallucis and abductor hallucis tendon sheaths. No evidence for osteomyelitis. Repeat MRI (05/30/2019) negative for abscess formation. Blood cultures are negative Received IV clindamycin x24 hours; discontinue 05/26/19 Sed rate up, CRP trending down. Patient is admitted to the medical floor. Continue IV Zosyn and vancomycin; day #5 anticipate transition to p.o. antibiotics tomorrow and probable discharge home.. Orthopedics is consulted; appreciate their evaluation and recommendations. Analgesics as needed. Keep extremity elevated (2) Tenosynovitis of right hand Is this a current diagnosis for this admission?: Yes Plan: As above #1 (3) Hypomagnesemia Is this a current diagnosis for this admission?: Yes Plan: We will replete and monitor (4) Tobacco use disorder, severe, dependence Is this a current diagnosis for this admission?: Yes Plan: Counseled on need to stop smoking. He states he has no intention of doing so at the present time (5) HTN (hypertension) Qualifiers: Hypertension type: essential hypertension Qualified Code(s): I10 - Essential (primary) hypertension Is this a current diagnosis for this admission?: Yes Plan: Improved with current medications. (6) Hypokalemia Is this a current diagnosis for this admission?: Yes Plan: Replete and monitor. (7) Alcohol dependence Qualifiers: Substance use status: uncomplicated Qualified Code(s): F10.20 - Alcohol dependence, uncomplicated Is this a current diagnosis for this admission?: Yes Plan: Patient has a history of heavy alcohol abuse/dependence; no evidence of withdrawal at this time Ativan available as needed for symptoms. Fall, seizure, aspiration precautions in place Folic Acid and thiamine supplementation. - Time Time Spent with patient: 25-34 minutes Anticipated discharge: Home Within: within 24 hours - Inpatient Certification Based on my medical assessment, after consideration of the patient's comorbidities, presenting symptoms, or acuity I expect that the services needed warrant INPATIENT care.: Yes I certify that my determination is in accordance with my understanding of Medicare's requirements for reasonable and necessary INPATIENT services [42 CFR 412.3e].: Yes Medical Necessity: Need for IV Antibiotics
[2019-05-31] MEDS: HYDRALAZINE HCL INJ/PF 20 MG/1 ML SDV IV PRN (16:12)
[2019-06-01] MEDS: PIPERACILLIN SODIUM/TAZOBACTAM 3.375 GM in NORMAL SALINE 100 ML IV SCH ×2 (03:14→09:55)
[2019-06-01] MEDS: VANCOMYCIN HCL 1,500 MG in DEXTROSE 5%-WATER 250 ML IV SCH (05:51)
[2019-06-01] MEDS: HYDROCODONE/ACETAMINOPHEN 5-325 MG TABLET PO PRN (05:51)
[2019-06-01] MEDS: HEPARIN SOD (PORCINE) 5,000 UNIT/ML 1 ML VIAL SUBCUT SCH (05:52)
--- NOTE | 2019-06-01 07:01 | PDOC DISCHARGE SUMMARY ---
General - Admit/Disc Date/PCP Admission Date/Primary Care Provider: 05/26/19 12:08 Discharge Date: 06/01/19 - Discharge Diagnosis (1) Cellulitis of right upper extremity Is this a current diagnosis for this admission?: Yes - Additional Information Resuscitation Status: Full Code Home Medications: No Home Medications 05/25/19 History of Present Illness History of Present Illness: JOSE MCNEAL is a 54 year old male Patient is a 54-year-old white male who presented emergency room with right dorsal hand swelling, erythema and pain extending up into the proximal forearm. He was evaluated with an MRI scan which demonstrated no clear abscess but an inflammatory process consistent with a septic tenosynovitis. Patient was started on empiric antibiotics and observe. Hospital Course Hospital Course: Patient was started on empiric antibiotics and observe. Eventually the erythema swelling and induration decreased in the hand function improved. Physical Exam Vital Signs: Temp Pulse Resp BP Pulse Ox 36.9 C 98 17 151/60 H 97 06/01/19 00:00 06/01/19 00:00 06/01/19 00:00 06/01/19 00:00 06/01/19 00:00 Intake & Output 05/30/19 05/31/19 06/01/19 06:59 06:59 06:59 Intake Total 3130 2290 2256 Output Total 1200 Balance 3130 1090 2256 Weight 92.3 kg 97 kg Physical Exam: Weathered appearing middle-aged white male sleeping comfortably in bed General appearance: PRESENT: no acute distress Head exam: PRESENT: normocephalic Respiratory exam: PRESENT: unlabored Cardiovascular exam: PRESENT: RRR Pulses: PRESENT: normal radial pulses Vascular exam: PRESENT: normal capillary refill GI/Abdominal exam: PRESENT: soft Rectal exam: PRESENT: deferred Extremities exam: PRESENT: other - The induration and erythema over the dorsum of the right hand have decreased considerably. There is a small area of eschar over the dorsum of the radial aspect of the radiocarpal joint which is now dry. Hand function is improving in terms of flexion-extension of the digits. Sensory examination is intact to light touch. There is brisk capillary refill. Psychiatric exam: PRESENT: appropriate affect, normal mood. ABSENT: homicidal ideation, suicidal ideation Results Laboratory Results: 05/31/19 04:49 Impressions: Forearm X-Ray 05/24/19 18:29 IMPRESSION: No fracture or radiopaque foreign body. Hand X-Ray 05/24/19 18:29 IMPRESSION: No acute fracture or dislocation. 5th DIP flexion deformity, chronic appearing. Upper Extremity MRI 05/29/19 08:32 IMPRESSION: 1. Diffuse swelling of the dorsum of the right hand without fluid collection or osteomyelitis. 2. Tenosynovitis of the first and second extensor compartments. Status: Imported from PACS Qualifiers - * PATIENT BEING DISCHARGED WITH ANY OF THE FOLLOWING DIAGNOSIS: No VTE patient discharged on overlapping Therapy?: No Reason(s) for not prescribing Overlap Therapy:: Not indicated Acute Heart Failure - Is this a Heart Failure Patient?: No Plan Discharge Plan: Patient to be converted from IV to oral antibiotic therapy and discharged home. Follow-up with Dr. calderon in the [facility] for surgery in 10 days.
[2019-06-01 07:11] LABS: VANCOMYCIN,TROUGH 30.5 ug/mL (5.0-20.0)
--- NOTE | 2019-06-01 08:01 | Progress Note Acknowledgement ---
Progress Note Acknowledgement Progess Note Acknowledgement: I, the undersigned member of the medical staff with appropriate privileges and with supervisory authority over [Angus Ball], a dependent practice allied health professional, acknowledge that I have reviewed the progress notes entered on this patient, and in my professional judgment believe that the assessment made and/or any care evidenced was appropriate
--- NOTE | 2019-06-01 08:05 | PDOC DISCHARGE SUMMARY ---
General - Admit/Disc Date/PCP Admission Date/Primary Care Provider: 05/26/19 12:08 No primary care noted Discharge Date: 06/01/19 - Discharge Diagnosis (1) Cellulitis of right wrist Is this a current diagnosis for this admission?: Yes (2) Alcohol withdrawal Is this a current diagnosis for this admission?: Yes Summary: 06/01/2019-Mr. Mcneal is a very pleasant 54-year-old gentleman presented with a cellulitis of the right wrist. Patient admitted placed on antibiotic therapy. Patient was followed by surgical consultation patient and show significant improvement as of today. Patient will be discharged home today with Bactrim DS 1 p.o. twice daily #20 he will also follow-up with Dr. azevedo on an outpatient basis. Patient has been educated on this plan of care and is in agreements. - Additional Information Resuscitation Status: Full Code Discharge Diet: As Tolerated Discharge Activity: Activity As Tolerated Prescriptions: Losartan Potassium [Cozaar 25 mg Tablet] 25 mg PO Q12 #60 tablet Sulfamethoxazole/Trimethoprim [Bactrim Ds Tablet] 1 each PO BID #20 tablet Home Medications: Losartan Potassium [Cozaar 25 mg Tablet] 25 mg PO Q12 #60 tablet 06/01/19 Sulfamethoxazole/Trimethoprim [Bactrim Ds Tablet] 1 each PO BID #20 tablet 06/01/19 History of Present Illness Patient complains of: None History of Present Illness: JOSE MCNEAL is a 54 year old male 06/01/2019-Mr. Mcneal is a very pleasant 54-year-old gentleman presented with a cellulitis of the right wrist. Patient admitted placed on antibiotic therapy. Patient was followed by surgical consultation patient and show significant improvement as of today. Patient will be discharged home today with Bactrim DS 1 p.o. twice daily #20 he will also follow-up with Dr. azevedo on an outpatient basis. Patient has been educated on this plan of care and is in agreements. Hospital Course Hospital Course: 06/01/2019-Mr. Mcneal is a very pleasant 54-year-old gentleman presented with a cellulitis of the right wrist. Patient admitted placed on antibiotic therapy. Patient was followed by surgical consultation patient and show significant improvement as of today. Patient will be discharged home today with Bactrim DS 1 p.o. twice daily #20 he will also follow-up with Dr. azevedo on an outpatient basis. Patient has been educated on this plan of care and is in agreements. Physical Exam Vital Signs: Temp Pulse Resp BP Pulse Ox 98.4 F 98 17 151/60 H 97 06/01/19 00:00 06/01/19 00:00 06/01/19 00:00 06/01/19 00:00 06/01/19 00:00 Intake & Output 05/31/19 06/01/19 06/02/19 06:59 06:59 06:59 Intake Total 2290 2256 Output Total 1200 Balance 1090 2256 Weight 97 kg General appearance: PRESENT: no acute distress, well-developed, well-nourished Head exam: PRESENT: atraumatic, normocephalic Eye exam: PRESENT: conjunctiva pink, EOMI, PERRLA. ABSENT: scleral icterus Ear exam: PRESENT: normal external ear exam Mouth exam: PRESENT: moist, tongue midline Neck exam: ABSENT: carotid bruit, JVD, lymphadenopathy, thyromegaly Respiratory exam: PRESENT: clear to auscultation ankit. ABSENT: rales, rhonchi, wheezes Cardiovascular exam: PRESENT: RRR. ABSENT: diastolic murmur, rubs, systolic murmur Pulses: PRESENT: normal dorsalis pedis pul Vascular exam: PRESENT: normal capillary refill GI/Abdominal exam: PRESENT: normal bowel sounds, soft. ABSENT: distended, guarding, mass, organolmegaly, rebound, tenderness Rectal exam: PRESENT: deferred Extremities exam: PRESENT: full ROM. ABSENT: calf tenderness, clubbing, pedal edema Neurological exam: PRESENT: alert, awake, oriented to person, oriented to place, oriented to time, oriented to situation, CN II-XII grossly intact. ABSENT: motor sensory deficit Psychiatric exam: PRESENT: appropriate affect, normal mood. ABSENT: homicidal ideation, suicidal ideation Skin exam: PRESENT: dry, intact, warm, other - Small 1 to 1/2 cm in size abscess that has improved significantly. There is no swelling at this upper extremity this time.. ABSENT: cyanosis, rash Results Laboratory Results: 05/31/19 04:49 06/01/19 05:54 06/01/19 05:54 Creatinine 1.10 Est GFR ( Amer) > 60 Est GFR (Non-Af Amer) > 60 Impressions: Forearm X-Ray 05/24/19 18:29 IMPRESSION: No fracture or radiopaque foreign body. Hand X-Ray 05/24/19 18:29 IMPRESSION: No acute fracture or dislocation. 5th DIP flexion deformity, chronic appearing. Upper Extremity MRI 05/29/19 08:32 IMPRESSION: 1. Diffuse swelling of the dorsum of the right hand without fluid collection or osteomyelitis. 2. Tenosynovitis of the first and second extensor compartments. Qualifiers - * PATIENT BEING DISCHARGED WITH ANY OF THE FOLLOWING DIAGNOSIS: No Reason(s) for not prescribing Overlap Therapy:: Not indicated Acute Heart Failure - Is this a Heart Failure Patient?: No Plan Time Spent: Greater than 30 Minutes
[2019-06-01] MEDS: MAGNESIUM OXIDE 400 MG TABLET PO SCH (09:55)
[2019-06-01] MEDS: LOSARTAN POTASSIUM 25 MG TABLET PO SCH (09:55)
[2019-06-01] MEDS: DOCUSATE SODIUM 100 MG CAPSULE PO SCH (09:55)
[2019-06-01] MEDS: FAMOTIDINE 20 MG TABLET PO SCH (09:55)
[2019-06-01] MEDS: THIAMINE HCL 100 MG TABLET PO SCH (09:55)
[2019-06-01 12:44] VITALS: BP 151/60
== END 2019-06-01 13:11 | disposition home or self-care (01) | DRG 603 ==
LOC: ER 15:44 → EH 22:20 → 4W 05-25 10:24 → 4S 05-25 13:36 → OBSVTOIN 05-26 12:08
PROVIDERS: ADMIT Emergency Medicine; ATTEND Emergency Medicine
PROC: 0XJ Anatomical Regions, Upper Extremities, Inspection (ICD-10-PCS; principal; 2019-05-26)
DX: L03.113 Cellulitis of right upper limb (principal); E78.5 Hyperlipidemia, unspecified; F10.20 Alcohol dependence, uncomplicated; I10 Essential (primary) hypertension; B19.20 Unspecified viral hepatitis C without hepatic coma; M65.141 Other infective (teno)synovitis, right hand; M19.90 Unspecified osteoarthritis, unspecified site; Z85.828 Personal history of other malignant neoplasm of skin; F17.200 Nicotine dependence, unspecified, uncomplicated; E87.6 Hypokalemia; E83.42 Hypomagnesemia; Z88.1 Allergy status to other antibiotic agents; Z20.7 Contact with and (suspected) exposure to pediculosis, acariasis and other infestations
CPT/HCPCS: 36415; 80048; 80053; 80061; 80202; 80307; 82565; 83735; 84439; 84443; 84481; 85025; 85027; 85652; 86140; 87040; 93971; 99285; G0378; J0360; J1644; J1885; J2270; J2405; J2543; J3230; J3360; J3370; J3490; J7030; J7050; J7060